=== PATIENT | male | born 1935 | race Caucasian/White ===

== ENCOUNTER 2020-11-29 14:03 | Emergency (ER) | payer MEDICARE, SELFPAY ==
[2020-11-29 14:05] VITALS: BP 142/101; PULSE 89; PULSE 95; RESP 24; TEMP 36.9; O2SAT 95; BMI 26.5
--- NOTE | 2020-11-29 14:43 | XR_ITS ---
PROCEDURE INFORMATION: Exam: XR Chest Exam date and time: 11/29/2020 2:43 PM Age: 85 years old Clinical indication: Chest pain; Patient HX: Pain when coughing; Additional info: Cough TECHNIQUE: Imaging protocol: XR of the chest. Views: 2 views. COMPARISON: No relevant prior studies available. FINDINGS: Lungs: The lungs are hyperinflated, consistent with underlying small airways disease. Granulomatous density noted within the left lung apex. Atelectatic and/or early infiltrative changes noted within the left lung base. Pleural spaces: Unremarkable. No pleural effusion. No pneumothorax. Heart/Mediastinum: Unremarkable. No cardiomegaly. Bones/joints: The thoracic spine demonstrates mild degenerative changes at multiple levels. IMPRESSION: 1. The lungs are hyperinflated, consistent with underlying small airways disease. 2. Atelectatic and/or early infiltrative changes noted within the left lung base.
--- NOTE | 2020-11-29 14:56 | HMH.EDUTC ---
[facility] [place] Disposition Clinical Impression: Infiltrate of left lung present on chest x-ray Disposition: Home, Self-Care Condition on Discharge: Good Instructions: Aspiration Pneumonia, DI for Pneumonia -- Adult, Amoxicillin and Clavulanic Acid Additional Instructions: ? Start antibiotic today. Be sure to complete entire prescription even if feeling better ? Monitor temp. Tylenol every 4 hours as needed and / or ibuprofen every 6 hours as needed ( As long as your primary care physician has told you that it ok to take both. For fever/aches/pains ER if no less than 101 despite Tylenol or Motrin ? Humidifier/vaporizer or hot steamy shower ? Mucinex during the day for your cough and cough suppressant only at night. Be sure to drink lots of water. Insurance may not cover a prescriptions for mucinex. Might be cheaper to get 400mg tablets and take 2 tablet in the morning, mid-day and evening with lots of water. Follow up IMMEDIATELY for new or worsening of symptoms OR no noticeable improvement over the next 48-72 hours. 911 immediately for any life threatening symptoms such as chest pain or difficulty breathing Prescriptions: Amoxicillin/Potassium Clav [Augmentin 875-125 Tablet] 1 tab PO Q12H 5 Days #10 tab Prescription Printed Referrals: Ankit Harding MD [Primary Care Provider] - As needed Time of Disposition: 15:33 Medical Decision Making - Billy Inquiry Pt receiving controlled substance: No Billy was queried for this patient: No Vital Signs: 11/29/20 14:05 11/29/20 15:44 Temperature 98.4 F 98.4 F Temperature Source Oral Pulse Rate 89 Pulse Rate [Right Brachial] 95 H Respiratory Rate 24 24 Blood Pressure 117/70 Blood Pressure [Right Arm] 142/101 H Blood Pressure Mean [Right Arm] 114 Blood Pressure Source [Right Arm] Automatic Cuff Blood Pressure Position [Right Arm] Sitting 02 Sat by Pulse Oximetry 95 Oxygen Delivery Method Room Air - Radiology Data #1 Image(s): Chest Image Reviewed: Yes I have reviewed radiologist's interpretation 1. The lungs are hyperinflated, consistent with underlying small airways disease. 2. Atelectatic and/or early infiltrative changes noted within the left lung base. Medical Decision Narrative: medication discussed with pharmacy [facility] [place] HPI - General Stated complaint: cough Time Seen by Provider: 11/29/20 14:56 Mode of Arrival: Ambulatory Source of Information: Patient Limitations: No Limitations Description of Symptoms (Recalled from Triage Doc. by RN): PATIENT STATES HE GOT STRANGLED ON TEA YESTERDAY AND SINCE THEN HAS HAD A COUGH SINCE THEN. STATES COUGH IS INTERMITTENLY PRODUCTIVE HEENT Symptoms (Recalled from RN notes): No Resp Symptoms (Recalled from RN notes): Yes Skin Symptoms (Recalled from RN notes): No MS Symptoms (Recalled from RN notes): No Functional Status (Recalled from RN notes): WNL - History of Present Illness Provider Complaint: Patient states that he was drinking tea yesterday when he got chocked as he took a drink of tea States that it was only a small amount State that ever since he has had a cough on and off and sometimes he is coughing up mucous. States that he was worried where he was coughing and felt a tickle in the back of his throat so he came in to get checked - Related Data Home Medications Medication Instructions Recorded Confirmed Quinapril HCl [Accupril] 20 mg PO DAILY 11/29/20 11/29/20 Tamsulosin HCl [Flomax 0.4mg 0.4 mg PO HS 11/29/20 11/29/20 capsule] Verapamil HCl [Verapamil ER] 120 mg PO DAILY 11/29/20 11/29/20 Previous Rx's Medication Instructions Recorded Amoxicillin/Potassium Clav 1 tab PO Q12H 5 Days #10 tab 11/29/20 [Augmentin 875-125 Tablet] Allergies Allergy/AdvReac Type Severity Reaction Status Date / Time No Known Allergies Allergy Verified 11/29/20 14:57 - Worker's Comp Is this a Worker's Comp case?: No [facility] History - Hepatitis A Screen Drug use history?: No Hi
[2020-11-29 15:44] VITALS: BP 117/70; PULSE 89; RESP 24; TEMP 36.9; O2SAT 95
== END 2020-11-29 15:47 | disposition home or self-care (01) ==
PROVIDERS: Emergency Provider Nurse Practitioner; PCP Family Medicine
DX: R91.8 Other nonspecific abnormal finding of lung field (principal); I10 Essential (primary) hypertension; Z79.899 Other long term (current) drug therapy
CPT/HCPCS: G0463; 71046; 99202

== ENCOUNTER → 2022-03-05 15:31 | Outpatient (CLI) | payer MEDICARE, SELFPAY ==
[2022-03-07 08:11] LABS: PSA, Free 2.87 ng/mL; Prostate Specific Ag 6.9 ng/mL (0.0-4.0)
== END ==
PROVIDERS: Visit Provider Urology
DX: R97.20 Elevated prostate specific antigen [PSA] (principal)
CPT/HCPCS: 36415; 84153; 84154

== ENCOUNTER → 2022-03-05 15:35 | Outpatient (CLI) | payer MEDICARE, SELFPAY | PROVIDERS: PCP Urology; Visit Provider Family Medicine | DX: R97.20 Elevated prostate specific antigen [PSA] (principal) ==

== ENCOUNTER → 2022-04-09 09:19 | Outpatient (CLI) | payer MEDICARE, SELFPAY | PROVIDERS: PCP Family Medicine; Visit Provider Urology | DX: N40.1 Benign prostatic hyperplasia with lower urinary tract symptoms (principal); Z01.812 Encounter for preprocedural laboratory examination; Z20.822 Contact with and (suspected) exposure to COVID-19 | CPT/HCPCS: C9803; U0003; U0005 ==

== ENCOUNTER 2022-04-12 10:11 | Day surgery (SDC) | payer MEDICARE, SELFPAY ==
[2022-04-12 10:39] VITALS: BP 150/71; PULSE 61; RESP 18; TEMP 36.8; O2SAT 99; BMI 28.0
[2022-04-12 11:39] VITALS: BP 156/81; PULSE 64; RESP 17; TEMP 36.1; O2SAT 99
[2022-04-12 11:46] VITALS: BP 156/81; PULSE 64; RESP 17; TEMP 36.1; O2SAT 99
--- NOTE | 2022-04-12 11:54 | EXP.OP.NOTE ---
Date of procedure: 04/12/22 Pre-op Diagnosis:: Lower urinary tract symptoms with incomplete bladder emptying and incontinence. Post-op Diagnosis:: BPH with obstruction Procedure performed:: Cystoscopy Surgeon:: Terry Dixon MD Anesthesia: local Estimated blood loss (mL): 0 Clinical Note:: Patient is an 86-year-old white male with urinary symptoms of urgency, frequency and urge incontinence. Postvoid residual was 315 cc. He presents for cystoscopic evaluation. Operative findings:: Patient with severe trabeculation of the bladder and trilobar hyperplasia. Operative note:: Patient taken to the cystoscopy suite after informed consent was obtained. He was prepped draped in the standard surgical fashion in the supine position. 2% lidocaine was placed into the urethra and clamped. After 5 minutes the flexible cystoscope was introduced into the urethral meatus. Passed into the bladder without difficulty and the bladder was examined in a systematic fashion. There was severe trabeculation of the bladder. No diverticula or bladder stones were noted. The ureteral orifices were well away from the bladder neck. There is clear efflux of urine from the ureteral orifices. The scope was retroflexed showing a median lobe that was moderate in size. Scope then pulled back to the prostatic urethra and there was trilobar hyperplasia present. Urethral length was 2-1/2 cm. There is no evidence of urethral strictures. Scope removed the patient tolerated the procedure well. We discussed the findings today and due to the median lobe he is not a good UroLift candidate and TURP was discussed to help him empty his bladder out and improve his lower urinary tract symptoms. He states he will discuss it with his primary care physician and his . He will let me know how he wishes to proceed. Condition: stable Disposition: same day Specimens:: None Complications:: None
== END 2022-04-12 11:46 | disposition home or self-care (01) ==
PROVIDERS: PCP Family Medicine; Visit Provider Urology
DX: N40.1 Benign prostatic hyperplasia with lower urinary tract symptoms (principal); R33.9 Retention of urine, unspecified; R32 Unspecified urinary incontinence; N32.89 Other specified disorders of bladder
CPT/HCPCS: 52000

== ENCOUNTER 2022-07-13 11:11 | Emergency (ER) | payer MEDICARE, SELFPAY ==
[2022-07-13] VITALS (9 sets, daily range): BP systolic 114–148; BP diastolic 61–83; PULSE 64–79; RESP 18–20; TEMP 37.1; O2SAT 94–98; BMI 25.8
--- NOTE | 2022-07-13 11:45 | CT_ITS ---
FINAL REPORT TECHNIQUE: Postcontrast axial images through the abdomen and pelvis were performed. This study was performed with techniques to keep radiation doses as low as reasonably achievable, (ALARA). Individualized dose reduction techniques using automated exposure control or adjustment of mA and/or kV according to the patient's size were employed. CLINICAL HISTORY: LBP, abdo tenderness, diarrhea, trouble urinating FINDINGS: Abdomen: There is atelectasis in the lung bases. There are 2 presumed cysts in the right liver dome measuring up to 2.1 cm. There is mild nonspecific gallbladder wall thickening. The spleen is borderline enlarged at 13.4 cm. The adrenals are normal. The pancreas is unremarkable. The kidneys enhance appropriately. The aorta is normal in caliber. There is moderate vascular calcification. No free fluid or adenopathy is identified. There are multiple nonspecific fluid-filled bowel loops. No findings for mechanical bowel obstruction are identified. Pelvis: The appendix is normal. There is diverticulosis of the sigmoid colon. There is urinary bladder wall thickening with multiple small bladder diverticula. There are questionable postoperative changes in the central prostate. There is a small left inguinal hernia containing fat. There is a 25 mm focus of soft tissue in the upper right inguinal canal of uncertain etiology. IMPRESSION: Nonspecific fluid-filled bowel loops. Diverticulosis without diverticulitis. 25 mm focus of soft tissue in the upper right inguinal canal of uncertain etiology. Bladder wall thickening with multiple small bladder diverticula. Reviewed, Interpreted and Dictated by Terrence Roe III, MD Transcribed by Willie Adame Authenticated and [facility]
--- NOTE | 2022-07-13 11:45 | XR_ITS ---
FINAL REPORT CLINICAL HISTORY: weakness COMPARISON: November 2020 FINDINGS: SINGLE VIEW CHEST The heart size is enlarged. The mediastinum is within normal limits. There is mild bibasilar atelectasis. There is no evidence of pneumothorax. The bony thorax is intact. IMPRESSION: Mild bibasilar atelectasis. Reviewed, Interpreted and Dictated by Terrence Roe III, MD Transcribed by Willie Adame Authenticated and [facility] [place] [place]
--- NOTE | 2022-07-13 11:49 | HMH.EDGENADL ---
Discharge Plan Disposition Patient Disposition: Home, Self-Care Condition: Good Chief Complaint: Weakness Prescriptions Prescriptions: No Action simvastatin 10 mg tablet 10 mg PO DAILY tamsulosin 0.4 MG capsule 0.4 mg PO HS quinapril 20 MG tablet 20 mg PO DAILY verapamil 120 MG capsule,ext rel. pellets 24 hr 120 mg PO DAILY Referrals Follow up/Referrals: Cailin Rooney MD [Primary Care Provider] - See instructions Activity Restrictions/Add. Instructions Additional Instructions/Restrictions: Rest and drink plenty of fluids. Call Dr. Rooney for follow-up appointment. Follow-up with your urologist for soft tissue mass in your right inguinal canal seen on CT scan. Take disc of your CT scan with you to appointment. Clinical Impressions Clinical Impression: Generalized weakness Instructions Patient Instructions: DI for Muscle Weakness Discharge ED Provider: Tommy Díaz General Adult HPI General Chief complaint: Weakness Stated complaint: Weakness Time Seen by Provider: 07/13/22 11:37 History of Present Illness HPI narrative: History obtained from patient and son. Son states that the patient had a TURP done [address] Martel at [facility] in [place]. Since then he has had continual decline. He is profoundly generally weak. Fell yesterday and could not get up by himself. He complains of low back pain. He has had diarrhea with fecal incontinence a couple of times and difficulty urinating since yesterday. Denies fever. Denies abdominal pain. Denies chest pain or shortness of breath or cough. States he has been eating and drinking normally and urinating a normal amount. Son states patient has not slept for the past 5 days until last night, patient says he slept well last night after taking melatonin. He had some hematuria after his TURP, but it resolved. No dysuria. Related Data Home Medications Medication Instructions Recorded Confirmed quinapril 20 mg tablet 20 mg PO DAILY Hypertension 11/29/20 04/12/22 tamsulosin 0.4 mg capsule 0.4 mg PO HS PROSTATE 11/29/20 04/12/22 verapamil 120 mg 24 hr 120 mg PO DAILY Hypertension 11/29/20 04/12/22 capsule,extended release simvastatin 10 mg tablet 10 mg PO DAILY Cholesterol 03/05/22 04/12/22 Allergies Allergy/AdvReac Type Severity Reaction Status Date / Time No Known Allergies Allergy Verified 04/12/22 10:34 PFSH PFS Disclaimer: The information contained in this section may have been updated after the patient was seen, as this information can be updated by other users. Medical History (Updated 07/13/22 @ 14:57 by Tommy Díaz MD) High blood cholesterol High blood pressure Surgical History (Updated 04/12/22 @ 10:37 by Paula Jose RN) H/O hernia repair Family History (Updated 04/12/22 @ 10:38 by Paula Jose RN) Other Stroke Social History (Updated 04/12/22 @ 10:38 by Paula Jose RN) Smoking Status: Never smoker alcohol intake: never substance use type: denies use current occupational status: retired and other Travel in the last 8 weeks: None household members: spouse and family housing: house ROS Obtained: Yes Systems reviewed as appropriate & no additional complaints except as documented Constitutional Constitutional: Reports fatigue, Denies fever(s), Denies headache(s) and Reports weakness ENT Ears, Nose, Mouth, and Throat: Denies headache(s), Denies nasal discharge and Denies sore throat Cardiovascular Cardiovascular: Denies chest pain Respiratory Respiratory: Denies shortness of breath and Denies cough Gastrointestinal Gastrointestingal: Reports diarrhea and fecal incontinence; Denies abdominal pain, constipation or vomiting Genitourinary Male Genitourinary: Reports difficulty urinating and Denies flank pain Musculoskeletal Musculoskeletal: Reports back pain and Denies numbness Neurologic Neurologic: Denies headache(s), Denies numbness and Reports wea
--- NOTE | 2022-07-13 11:58 | PC.NURSE ---
DIMAS WASSERMAN at for patient eval
[2022-07-13 11:59] LABS: Chloride 98 mmol/L (98-107); Sodium 130 mmol/L (136-145)
[2022-07-13 12:00] LABS: Basophils # 0.1 K/mm3 (0-0.2); Basophils % 0.6 % (0.1-2.0); Eosinophils # 0.1 K/mm3 (0.0-0.4); Eosinophils % 0.6 % (0.1-12.0); Hematocrit 46.7 % (42.0-52.0); Hemoglobin 15.2 g/dL (14.1-18.0); Lymphocytes # 0.7 K/mm3 (0.7-4.5); Lymphocytes % 8.4 % (10-50); Mean Corpuscular HGB Conc 32.5 g/dL (31.8-35.4); Mean Corpuscular Hemoglobin 30.4 pg (27.0-31.2); Mean Corpuscular Volume 93.5 fl (80-94); Monocytes # 0.2 K/mm3 (0.1-1.0); Monocytes % 2.9 % (1.7-9.3); Neutrophils # 6.8 K/mm3 (1.8-7.8); Neutrophils % 87.4 % (37.0-80.0); Platelet Count 230 K/mm3 (142-424); Potassium 4.4 mmoL/L (3.5-5.1); Red Blood Count 4.99 M/mm3 (4.60-6.20); Red Cell Distribution Width 12.8 % (11.5-17.5); White Blood Count 7.8 K/mm3 (4.8-10.8)
[2022-07-13 12:01] LABS: MANUAL DIFFERENTIAL MANUAL DIFFERENTIAL (MANUAL DIFF)
--- NOTE | 2022-07-13 12:01 | ECG_ITS ---
APPROVED REPORT Exam: Resting ECG HR:77 bpm ECG Measurements Heart Rate 77 AXES OR 171 P 53 QRSd 138 QRS 40 QT 408 T 46 QTc 439 Conclusion SINUS RHYTHM LEFT BUNDLE BRANCH BLOCK [120+ ms QRS DURATION, 80+ ms Q/S IN V1/V2, 85+ ms R IN I/aVL/V5/V6] ABNORMAL ECG UNCONFIRMED REPORT Electronically signed by : Ankit Loera MD 07/13/2022 19:53:08
[2022-07-13 12:02] LABS: Alanine Aminotransferase 32 U/L (12-78); Albumin Level 4.2 g/dl (3.5-5.0); Albumin/Globulin Ratio 1.4 (1.1-1.8); Alkaline Phosphatase 115 U/L (38-126); Anion Gap 14.4 mEq/L (5-15); Aspartate Amino Transferase 45 U/L (17-59); Bilirubin,Total 0.6 mg/dl (0.2-1.3); Blood Urea Nitrogen 15 mg/dl (9-20); Calcium 9.8 mg/dl (8.4-10.2); Carbon Dioxide 22 mmol/L (22.0-30.0); Creatine Kinase 218 U/L (55-170); Creatinine Clearance Estimated 42 mL/min (50-200); Estimated Glomerular Filt Rate 48 ml/min (>60); GFR (African American) 58 ML/MIN (>60); Globulin 3.1 g/dL (1.3-3.2); Glucose 118 mg/dl (74-100); Total Protein,Serum 7.3 g/dl (6.3-8.2)
[2022-07-13 12:04] LABS: Lactic Acid 1.3 mmol/L (0.7-2.1)
[2022-07-13 12:05] LABS: Coronavirus 19, PCR Not Detected (NotDetected); Influenza A, PCR Not Detected (NotDetected); Influenza B, PCR Not Detected (NotDetected)
[2022-07-13 12:11] LABS: CKMB Relative Index 0.7 U/L (0-4.0); Creatine Kinase MB 1.5 ng/ml (0.0-2.03)
[2022-07-13 12:16] LABS: Troponin I < 0.01 ng/ml (0.00-0.034)
--- NOTE | 2022-07-13 12:19 | PC.NURSE ---
pt given urinal to attempt to provide urine specimen
--- NOTE | 2022-07-13 12:20 | PC.NURSE ---
pt to CT via stretcher with cardiac cath lab radiology technologist
[2022-07-13 12:22] LABS: Lymphocytes % 4 % (10-50); Monocytes % 4 % (2-9); Neutrophils % 92 % (42-76); Platelet Estimate Normal; RBC Morphology Normal; Total Cells Counted 100
--- NOTE | 2022-07-13 12:39 | PC.NURSE ---
pt returned from CT via stretcher with player piano technician
--- NOTE | 2022-07-13 13:08 | PC.NURSE ---
pt unable urinate so far, urinal at BS for put use.
--- NOTE | 2022-07-13 13:55 | PC.NURSE ---
contacted radiology to check on status of CT results, staff states they are the next in line to be read.
[2022-07-13 14:23] LABS: Microscopic, Urine URINE MICROSCOPIC (MICROSCOPIC)
[2022-07-13 14:25] LABS: Appearance,Urine CLEAR (Clear); Bilirubin,Urine Negative (Negative); Blood, Urine 2+ (Negative); Color,Urine YELLOW (Yellow); Glucose,Urine (UA) Negative (Negative); Ketones,Urine Negative (Negative); Leukocyte Esterase,Urine Negative (Negative); Nitrate,Urine Negative (Negative); PH,Urine 5.5 (5.0-8.5); Protein,Urine Negative (Negative); Urobilinogen,Urine 0.2 EU/dl (0.2)
[2022-07-13 14:44] LABS: WBC,Urine Occasional #/hpf (0-3)
--- NOTE | 2022-07-13 14:44 | PC.NURSE ---
Pt resting on ED stretcher, son at . Both aware that we are still waiting on results. Gave pt another warm blanket. No other needs from pt or son at this time
[2022-07-13 14:45] LABS: Squamous Epithelial Cell,Urine Occasional #/hpf (0-5)
--- NOTE | 2022-07-13 14:52 | PC.NURSE ---
ER at to update pt and family of POC
== END 2022-07-13 15:22 | disposition home or self-care (01) ==
PROVIDERS: Emergency Provider Emergency Medicine; PCP Family Medicine
DX: R53.1 Weakness (principal); Z48.816 Encounter for surgical aftercare following surgery on the genitourinary system; Z90.79 Acquired absence of other genital organ(s); Z79.899 Other long term (current) drug therapy
CPT/HCPCS: 71045; 74177; 80053; 81001; 82550; 82553; 83605; 84484; 85007; 85025; 87040; 93005; 96365; 99284; 99285; C9803; Q9967; U0003; U0005

== ENCOUNTER 2023-06-10 14:43 | Emergency (ER) | payer MEDICARE, SELFPAY ==
[2023-06-10] VITALS (8 sets, daily range): BP systolic 125–157; BP diastolic 65–77; PULSE 56–81; RESP 16–18; TEMP 36.8–37.1; O2SAT 96–99; BMI 26.5
[2023-06-10 15:13] LABS: Basophils # 0.1 K/mm3 (0-0.2); Eosinophils # 0.1 K/mm3 (0.0-0.4); Eosinophils % 1.3 % (0.1-12.0); Hematocrit 41.9 % (42.0-52.0); Hemoglobin 14.7 g/dL (14.1-18.0); Lymphocytes # 1.4 K/mm3 (0.7-4.5); Lymphocytes % 25.9 % (10-50); Mean Corpuscular HGB Conc 35.1 g/dL (31.8-35.4); Mean Corpuscular Hemoglobin 31.8 pg (27.0-31.2); Mean Corpuscular Volume 90.6 fl (80-94); Monocytes # 0.5 K/mm3 (0.1-1.0); Monocytes % 8.9 % (1.7-9.3); Neutrophils # 3.4 K/mm3 (1.8-7.8); Neutrophils % 62.8 % (37.0-80.0); Platelet Count 167 K/mm3 (142-424); Red Blood Count 4.63 M/mm3 (4.60-6.20); Red Cell Distribution Width 13.2 % (11.5-17.5); White Blood Count 5.5 K/mm3 (4.8-10.8)
--- NOTE | 2023-06-10 15:18 | XR_ITS ---
PROCEDURE INFORMATION: Exam: XR Chest Exam date and time: 06/10/2023 4:32 PM Age: 87 years old Clinical indication: Cough; Additional info: Cough, weakness TECHNIQUE: Imaging protocol: Radiologic exam of the chest. Views: 1 view. COMPARISON: CR XR CHEST PORTABLE 07/13/2022 12:48 PM FINDINGS: Lungs: Hypoaeration of the lungs which are clear for the degree of inspiration. No pulmonary edema or consolidation. Pleural spaces: No pleural effusion. No pneumothorax. Heart/Mediastinum: Cardiomediastinal silhouette is normal. Bones/joints: No acute abnormality. IMPRESSION: No acute abnormality.
--- NOTE | 2023-06-10 15:18 | CT_ITS ---
PROCEDURE INFORMATION: Exam: CT Cervical Spine Without Contrast Exam date and time: 06/10/2023 5:14 PM Age: 87 years old Clinical indication: Injury or trauma; Fall; Blunt trauma; Injury date: 06/09/23 TECHNIQUE: Imaging protocol: Computed tomography of the cervical spine without contrast. Radiation optimization: All CT scans at this facility use at least one of these dose optimization techniques: automated exposure control; mA and/or kV adjustment per patient size (includes targeted exams where dose is matched to clinical indication); or iterative reconstruction. REPORTING DATA: Count of CT and Cardiac NM exams in prior 12 months: This patient has received [address] and 0 known cardiac nuclear medicine studies in the 12 months prior to the current study. COMPARISON: CT HEAD/BRAIN WO CON 06/10/2023 5:12 PM FINDINGS: Bones/joints: Vertebral alignment is maintained. There is preservation of vertebral body heights. Facet joints are aligned. Odontoid process is intact. Atlantoaxial interval maintained. No acute fracture. Uncovertebral and facet arthropathy result in varying degrees of neural foraminal narrowing at multiple levels. Paranasal sinuses: Scattered mucosal thickening throughout the paranasal sinuses. Lungs: Lung apices are normal. Soft tissues: Prevertebral and paravertebral soft tissues are maintained IMPRESSION: No acute fracture. No traumatic subluxation.
--- NOTE | 2023-06-10 15:18 | CT_ITS ---
PROCEDURE INFORMATION: Exam: CT Head Without Contrast Exam date and time: 06/10/2023 5:12 PM Age: 87 years old Clinical indication: Injury or trauma; Fall; Blunt trauma (contusions or hematomas); Injury date: 06/09/23 TECHNIQUE: Imaging protocol: Computed tomography of the head without contrast. Radiation optimization: All CT scans at this facility use at least one of these dose optimization techniques: automated exposure control; mA and/or kV adjustment per patient size (includes targeted exams where dose is matched to clinical indication); or iterative reconstruction. REPORTING DATA: Count of CT and Cardiac NM exams in prior 12 months: This patient has received [address] and 0 known cardiac nuclear medicine studies in the 12 months prior to the current study. COMPARISON: No relevant prior studies available. FINDINGS: Brain: There is no evidence of acute intracranial hemorrhage, extra-axial collection or locoregional mass effect. There are scattered hypodensities in the periventricular and subcortical white matter. The appearance is nonspecific, but most likely represents chronic small vessel disease in a person of this age Cerebral ventricles: The ventricles, sulci and cisterns are normal in size and configuration for patient's age. No hydrocephalus or midline structure shift Pituitary gland and sella: Sellar/parasellar structures, craniocervical junction and orbits are unremarkable Paranasal sinuses: Scattered mucosal thickening throughout the paranasal sinuses. Mastoid air cells: Visualized mastoid air cells are well aerated. Bones/joints: No calvarial fracture Soft tissues: Unremarkable. IMPRESSION: No acute intracranial abnormality. No calvarial fracture.
[2023-06-10 15:31] LABS: VBG Base Excess -6.7 mmol/L (-2.4-2.3); VBG HCO3 18.3 mmol/L (23-30); VBG PH 7.39 mmol/L (7.31-7.41); VBG PO2 37.3 mmol/L (28-40); VBG Total CO2 19.3 mmol/L (23-27)
--- NOTE | 2023-06-10 15:31 | ECG_ITS ---
APPROVED REPORT Exam: Resting ECG HR:62 bpm ECG Measurements Heart Rate 62 AXES MI 177 P 58 QRSd 134 QRS 8 QT 430 T 98 QTc 436 Conclusion SINUS RHYTHM LEFT BUNDLE BRANCH BLOCK Bi-atrial abnormality ABNORMAL ECG UNCONFIRMED REPORT Electronically signed by : Ankit Loera MD 06/12/2023 08:41:21
[2023-06-10 15:32] LABS: Chloride 103 mmol/L (98-107); Potassium 4.6 mmoL/L (3.5-5.1); Sodium 132 mmol/L (136-145)
[2023-06-10 15:34] LABS: Alanine Aminotransferase 22 U/L (12-78); Aspartate Amino Transferase 38 U/L (17-59); Blood Urea Nitrogen 12 mg/dl (9-20); Creatine Kinase 100 U/L (55-170); Creatinine Clearance Estimated 63 mL/min (50-200); Estimated Glomerular Filt Rate 80 ml/min (>60); GFR (African American) 97 ML/MIN (>60)
[2023-06-10 15:35] LABS: Albumin Level 4.1 g/dl (3.5-5.0); Albumin/Globulin Ratio 1.5 (1.1-1.8); Alkaline Phosphatase 79 U/L (38-126); Anion Gap 11.6 mEq/L (5-15); Bilirubin,Total 0.8 mg/dl (0.2-1.3); Carbon Dioxide 22 mmol/L (22.0-30.0); Globulin 2.8 g/dL (1.3-3.2); Glucose 99 mg/dl (74-100); Total Protein,Serum 6.9 g/dl (6.3-8.2)
--- NOTE | 2023-06-10 15:36 | HMH.EDGENADL ---
Discharge Plan Disposition Patient Disposition: Home, Self-Care Condition: Good Prescriptions Prescriptions: No Action simvastatin 10 mg tablet 10 mg PO DAILY tamsulosin 0.4 MG capsule 0.4 mg PO HS quinapril 20 MG tablet 20 mg PO DAILY verapamil 120 MG capsule,ext rel. pellets 24 hr 120 mg PO DAILY Referrals Follow up/Referrals: Cailin Rooney MD [Primary Care Provider] - See instructions Activity Restrictions/Add. Instructions Additional Instructions/Restrictions: You were evaluated in the emergency department today. You tested positive for COVID. Make sure that you are staying hydrated. Take Tylenol and ibuprofen at home as needed for pain and fever. Return to the emergency department for new or worsening symptoms. Clinical Impressions Clinical Impression: COVID-19, General weakness Instructions Patient Instructions: DI for Muscle Weakness, DI for COVID-19 (Suspected or Confirmed ) Discharge ED Provider: Milagro Yoo General Adult HPI General Chief complaint: Weakness Stated complaint: weakness, cough Time Seen by Provider: 06/10/23 14:48 Mode of Arrival: Ambulatory Source of Information: Patient Limitations: No Limitations Description of Symptoms (Recalled from ER Triage Doc. by RN): Pt reports no energy or strength x2 days. Pt reports fall lastnight r/t weakness, needed assistance getting back up. Pt denies injuries from fall, denies LOC. Pt also reports productive cough x2-3 days, no known fever. Pt denies SOA. History of Present Illness HPI narrative: This patient is a 87-year-old male with a history of hypertension and hyperlipidemia presenting to the emergency department for evaluation with concern for generalized weakness and fatigue. He reports that 3 days ago, he was outside lifting up a lot of heavy wood. Yesterday, he woke up and was not able to get up and do very much at all. He states that his entire body hurts and feels achy. He also had a ground-level fall last night as a result of the weakness, but he denies hitting his head, losing consciousness, or any injuries associated with this. He denies any fevers, chills, shortness of breath, chest pain, abdominal pain, nausea, vomiting, changes bowel movements, rashes, swelling, or other concerns. He does note that he has had a productive cough for the last 2 to 3 days. He denies any changes in appetite or oral intake. He notes he had an episode similar to this a while ago, but then it was attributed to a recent prostate surgery that he had had. He denies any recent surgeries or other concerns. Related Data Home Medications Medication Instructions Recorded Confirmed quinapril 20 mg tablet 20 mg PO DAILY Hypertension 11/29/20 04/12/22 tamsulosin 0.4 mg capsule 0.4 mg PO HS PROSTATE 11/29/20 04/12/22 verapamil 120 mg 24 hr 120 mg PO DAILY Hypertension 11/29/20 04/12/22 capsule,extended release simvastatin 10 mg tablet 10 mg PO DAILY Cholesterol 03/05/22 04/12/22 Allergies Allergy/AdvReac Type Severity Reaction Status Date / Time No Known Allergies Allergy Verified 04/12/22 10:34 [facility] Disclaimer: The information contained in this section may have been updated after the patient was seen, as this information can be updated by other users. Medical History High blood cholesterol High blood pressure Surgical History H/O hernia repair Family History Other Stroke Social History Smoking Status: Never smoker alcohol intake: never substance use type: denies use current occupational status: retired and other Travel in the last 8 weeks: None household members: spouse and family housing: house ROS Obtained: Yes All systems reviewed & no additional complaints except
--- NOTE | 2023-06-10 15:37 | PC.NURSE ---
covid swab sent to lab [facility] on ice sent to lab urinal at -pt reports unable to urinate at this time .
[2023-06-10 15:44] LABS: Influenza A, PCR Not Detected (NotDetected); Influenza B, PCR Not Detected (NotDetected)
--- NOTE | 2023-06-10 15:51 | PC.NURSE ---
pt to ct scan
[2023-06-10 15:52] LABS: T4 (Thyroxine) 6.3 ug/dl (5.53-11.0)
[2023-06-10 15:53] LABS: Magnesium 1.8 mg/dl (1.6-2.3)
[2023-06-10 16:02] LABS: Lactic Acid 1.1 mmol/L (0.7-2.1)
[2023-06-10 16:06] LABS: Thyroid Stimulating Hormone 1.11 uIU/mL (0.465-4.68)
--- NOTE | 2023-06-10 16:07 | PC.NURSE ---
PT GOING FOR CT
[2023-06-10 16:11] LABS: Coronavirus 19, PCR Detected (NotDetected)
== END 2023-06-10 17:47 | disposition home or self-care (01) ==
PROVIDERS: Emergency Medicine; Emergency Provider Emergency Medicine; PCP Family Medicine
DX: U07.1 COVID-19 (principal); R05.9 Cough, unspecified; R53.1 Weakness; I44.7 Left bundle-branch block, unspecified; I10 Essential (primary) hypertension; E78.5 Hyperlipidemia, unspecified; R53.83 Other fatigue; W19.XXXA Unspecified fall, initial encounter
CPT/HCPCS: 70450; 71045; 72125; 80053; 82550; 82803; 83605; 83735; 84436; 84443; 85025; 87636; 93005; 96374; 99285; J0131

== ENCOUNTER 2024-06-26 11:22 | Emergency (ER) | payer MEDICARE, SELFPAY ==
--- NOTE | 2024-06-26 12:00 | PC.NURSE ---
bladder scan revealed only 60 ml, ER provider notified
[2024-06-26 12:04] VITALS: BP 103/93; PULSE 68; RESP 18; TEMP 36.4; O2SAT 97; BMI 26.6
[2024-06-26] MEDS: TAMSULOSIN 0.4MG CAPSULE 0.4 MG PO (12:22)
[2024-06-26 12:34] LABS: Microscopic, Urine URINE MICROSCOPIC (MICROSCOPIC)
[2024-06-26 12:41] LABS: Appearance,Urine CLOUDY (Clear); Bilirubin,Urine Negative (Negative); Blood, Urine 2+ (Negative); Color,Urine YELLOW (Yellow); Glucose,Urine (UA) Negative (Negative); Ketones,Urine Negative (Negative); Leukocyte Esterase,Urine 2+ (Negative); Nitrate,Urine POSITIVE (Negative); Protein,Urine 2+ (Negative); Specific Gravity, Urine >= 1.030 (1.005-1.030)
--- NOTE | 2024-06-26 13:00 | HMH.EDGENADL ---
Discharge Plan Prescriptions Prescriptions: New cefdinir 300 mg capsule 300 mg PO BID 7 Days Qty: 14 0RF tamsulosin 0.4 mg capsule 0.4 mg PO DAILY Qty: 30 0RF No Action simvastatin 10 mg tablet 10 mg PO DAILY tamsulosin 0.4 MG capsule 0.4 mg PO HS quinapril 20 MG tablet 20 mg PO DAILY verapamil 120 MG capsule,ext rel. pellets 24 hr 120 mg PO DAILY Referrals Follow up/Referrals: Cailin Rooney MD [Primary Care Provider] - See instructions Activity Restrictions/Add. Instructions Additional Instructions/Restrictions: Take tamsulosin daily until following up with urology and family doctor. Cefdinir twice daily for 7 days. Call your family doctor to establish care for this visit to the emergency department and schedule follow-up within 48 hours to ensure improvement. If you have any worsening of your condition or any other concerning signs or symptoms, return to the emergency department or your primary care doctor for further evaluation. Clinical Impressions Clinical Impression: Urinary tract infection Instructions Patient Instructions: DI for Urinary Tract Infection (UTI), DI for Urinary Tract Infection in Children Print Language Print Language: Slovak Discharge ED Provider: Julian King General Adult HPI General Chief complaint: Urogenital-Male Stated complaint: can not urinate/pyh ref for catheter Time Seen by Provider: 06/26/24 11:35 Mode of Arrival: Ambulatory Source of Information: Patient Limitations: No Limitations Description of Symptoms (Recalled from ER Triage Doc. by RN): pt states he has had trouble urinating and had issues with retention. pt has a hx of prostate problems and has been trying to get a f/u with Dr. Borja but was unable to reach him. Pts prostate is enlarged, when biopsied a few years ago the tissue came back benign. Pt went and saw Dr. Rooney his PCP today. In the office the pt states there was no infection in his urine. pt reports he had L flank pain last night that has since resolved. On arrival pt was bladder scanned and had 60ml. History of Present Illness HPI narrative: Please note that above description of symptoms, in this electronic medical record under categorization of recalled from ER triage doctor by RN are reflective of an initial nursing assessment, however, is not reflective of my full history and physical exam that was personally taken and clarified. Consequentially, this preceding description of symptoms, which may include the patient's categorized chief complaint in the EMR, do not reflect my personal clinical impression, and the ultimate description of history of present illness and patient stated complaints should be deferred to this section of the note. Unless stated otherwise or congruent with this section of the note, additional signs, symptoms, or incongruence should be interpreted as inaccurate with my clinical impression. Related Data Home Medications ?Medication ?Instructions ?Recorded ?Confirmed quinapril 20 mg tablet 20 mg PO DAILY Hypertension 11/29/20 04/12/22 tamsulosin 0.4 mg capsule 0.4 mg PO HS PROSTATE 11/29/20 04/12/22 verapamil 120 mg 24 hr 120 mg PO DAILY Hypertension 11/29/20 04/12/22 capsule,extended release simvastatin 10 mg tablet 10 mg PO DAILY Cholesterol 03/05/22 04/12/22 Previous Rx's ?Medication ?Instructions ?Recorded cefdinir 300 mg capsule 300 mg PO BID 7 days #14 caps 06/26/24 tamsulosin 0.4 mg capsule 0.4 mg PO DAILY #30 caps 06/26/24 Allergies Allergy/AdvReac Type Severity Reaction Status Date / Time No Known Allergies Allergy Verified 06/26/24 12:16 [facility] Disclaimer: The information contained in this section may have been updated after the patient was seen, as this information can be updated by other users. Medical History High blood cholesterol High blood pressure Surgical History H/O hernia repair Family History Other Stroke Social History Smoking Status: Former smoker alcohol intake: never substance use type: denies use current occupational status: retired and other household members: spouse and family housing: house Other Medical History Have you received the Pneumonia Vaccine: Yes ROS Obtained: Yes All systems reviewed & no additional complaints except as documented Physical Exam General General appearance: alert Head Head exam: atraumatic and normocephalic Eye Eye exam: Present normal appearance, PERRL and EOMI Neck Neck exam: Present normal inspection, full ROM and trachea midline Respiratory Respiratory exam: Absent respiratory distress, wheezes, stridor, accessory muscle use or prolonged expiratory phase Cardiovascular Cardiovascular exam: Present other (Pulses equal symmetric in upper and lower extremities) Abdominal Exam Abdominal exam: Present soft; Absent distention, tenderness or pulsatile mass Extremities Exam Extremities exam: Absent edema Neurological Exam Neurological exam: Present alert, oriented X3 and CN II-XII intact; Absent motor sensory deficit Skin Skin exam: Present warm and dry; Absent diaphoresis or erythema Medical Decision Making Medical Records Medical records reviewed: Yes I reviewed the patient's medical records. Screening: Per USPSTF and CDC recommendations, given the prevalence of disease in our region, it is our hospital?s policy to screen for HIV and viral Hepatitis for all patients aged 18 and over and those with ongoing risk factors. Billy Inquiry Pt receiving controlled substance: No Billy was queried for this patient: No Vital Signs: 06/26/24 12:04 Temperature 97.6 F Temperature Source Oral Pulse Rate [Left] 68 Respiratory Rate 18 Blood Pressure [Right Arm] 103/93 L Blood Pressure Mean [Right Arm] 96 Blood Pressure Source [Right Arm] Automatic Cuff Blood Pressure Position [Right Arm] Sitting 02 Sat by Pulse Oximetry 97 Oxygen Delivery Method Room Air Lab Data Lab Results 06/26/24 12:30: Urine Color Yellow, Urine Appearance Cloudy, Urine pH 6.0, Ur Specific Sikes >= 1.030, Urine Protein 2+ A, Urine Glucose (UA) Negative, Urine Ketones Negative, Urine Blood 2+ A, Urine Nitrate Positive A, Urine Bilirubin Negative, Urine Urobilinogen 1.0, Ur Leukocyte Esterase 2+ A Orders (Tests/Meds): ED MEDICATIONS Generic Name Dose Route Start Last Admin Trade Name Freq PRN Reason Stop Dose Admin Cefdinir 300 mg 06/26/24 13:00 Cefdinir 300mg Capsule PO 06/26/24 13:01 ONCE ONE Discontinued Medications Generic Name Dose Route Start Last Admin Trade Name Freq PRN Reason Stop Dose Admin Tamsulosin HCl 0.4 mg 06/26/24 12:19 06/26/24 12:22 Tamsulosin 0.4mg Capsule PO 06/26/24 12:20 0.4 mg ONCE ONE Administration ORDERS Category Date Time Status HIV (1&2) Antibody Rapid Stat Lab 06/26/24 12:12 Ordered Hep C Ab with Reflex to RNA Stat Lab 06/26/24 12:12 Ordered UA [Urinalysis and Microscopic] Stat Lab 06/26/24 12:30 Results Urine Culture Stat Micro 06/26/24 12:30 Received Medical Decision Narrative: 88-year-old male history of prostatic metaplasia presenting with difficulty urinating. Patient states that he has had difficulty urinating for approximately 2 weeks. Called urologist, has not heard anything back. Went to his family doctor today, 06/26. States that he had urinalysis done and showed no evidence of infection. Patient states that at that appointment, was able to urinate, does not feel that he has been able to urinate since. States that he is intermittently having dribbling. No blood, burning, flank tenderness, abdominal tenderness, fevers, chills, vomiting, or any other concerns. History obtained with patient. On arrival, no abdominal tenderness, no acute distress. No flank tenderness. Differential includes urinary tract infection, BPH, bladder outlet obstruction, stone, among others. Patient given Flomax. Urinalysis was obtained to confirm. Sudarshan urinary tract infection with protein, blood, nitrates, leukocyte Estrace. First dose of cefdinir was given here. Given this, I feel this is likely residential sales representative of urinary tract infection in the setting of BPH. Tamsulosin and cefdinir sent to pharmacy, no further workup deemed necessary. Because patient at baseline without signs or symptoms of clinical decompensation, deemed appropriate for discharge. Results were relayed to patient who voiced understanding and were agreeable to outpatient management and follow up. I discussed my clinical impression with patient and answered all questions. At this time, the evidence for any other entities in the differential is insufficient to warrant any further testing or ED observation. This was explained as well. Advisory was given that persistent or worsening symptoms require further evaluation. I confirmed the understanding of this discussion. Community Development Coordinator disclaimer Much of this encounter note is an electronic electronic technician spoken language to printed text. Electronic electronic technician of the spoken language may permit errors. Although I have reviewed the note, some errors may still exist. Critical Care Critical Care Time Critical Care Time: No
[2024-06-26 13:07] VITALS: BP 110/90; PULSE 65; RESP 18; TEMP 36.4; O2SAT 98
[2024-06-26] MEDS: CEFDINIR 300MG CAPSULE 300 MG PO (13:12)
[2024-06-26 13:52] LABS: Bacteria,Urine 1+ /lpf; Squamous Epithelial Cell,Urine Occasional #/hpf (0-5)
--- NOTE | 2024-06-27 11:20 | PC.NURSE ---
urine culture discussed with , pt dc with cefdinir, ntd
--- NOTE | 2024-06-28 15:32 | PC.NURSE ---
urine final discussed with , no new orders
== END 2024-06-26 13:12 | disposition home or self-care (01) ==
PROVIDERS: Emergency Provider Emergency Medicine; PCP Family Medicine
DX: N39.0 Urinary tract infection, site not specified (principal); R33.8 Other retention of urine; R33.9 Retention of urine, unspecified
CPT/HCPCS: 81001; 87086; 87088; 87186; 99283

== ENCOUNTER 2025-02-22 17:49 | Emergency (ER) | payer MEDICARE, SELFPAY ==
[2025-02-22] VITALS (8 sets, daily range): BP systolic 111–165; BP diastolic 62–106; PULSE 64–108; RESP 20; TEMP 36.7–36.9; O2SAT 95–100; BMI 27.3
--- NOTE | 2025-02-22 18:19 | ED_ITS ---
Discharge Plan Disposition Patient Disposition: Home, Self-Care Condition: Good Prescriptions Prescriptions: New sulfamethoxazole-trimethoprim [Bactrim DS] 800-160 mg tablet 1 tab PO BID 5 Days Qty: 10 0RF No Action simvastatin 10 mg tablet 10 mg PO DAILY tamsulosin 0.4 MG capsule 0.4 mg PO HS quinapril 20 MG tablet 20 mg PO DAILY verapamil 120 MG capsule,ext rel. pellets 24 hr 120 mg PO DAILY cefdinir 300 mg capsule 300 mg PO BID 7 Days Qty: 14 0RF tamsulosin 0.4 mg capsule 0.4 mg PO DAILY Qty: 30 0RF Referrals Follow up/Referrals: Cailin Rooney MD [Primary Care Provider, Medical] - See instructions Activity Restrictions/Add. Instructions Additional Instructions/Restrictions: As we discussed please follow-up with your urologist as soon as possible. If you have any new or worsening signs or symptoms please return to the ER as needed. Clinical Impressions Clinical Impression: Bladder outlet obstruction, Constipation by outlet obstruction, Complicated urinary tract infection Print Language Print Language: [place] Discharge ED Provider: Hector Marquez General Adult HPI <ASHANTI Vickers - Last Filed: 02/22/25 21:09> General Chief complaint: PAIN Stated complaint: veronica constipated, having trouble sitting Time Seen by Provider: 02/22/25 18:19 Mode of Arrival: Ambulatory Source of Information: Patient and Relative Description of Symptoms (Recalled from ER Triage Doc. by RN): Patient presents to ED with constipation. Patient reports last BM 2-3 days ago and it was very small. Grand daughter reports an enema and suppository this morning with no relief. Patient is stating pain is mostly in his rectum and lower abdomen. History of Present Illness HPI narrative: Patient presents for acute abdominal pain. Patient states that he has been having abdominal pain since noon today. He has had nausea but no vomiting no diarrhea. He reports that he has not had a bowel movement in several days. Patient reports his only abdominal surgery was prostate surgery. He denies any chest pain fever chills hemoptysis hematochezia melena hematemesis hematuria. He has passed gas today with no relief. Related Data Home Medications ?Medication ?Instructions ?Recorded ?Confirmed quinapril 20 mg tablet 20 mg PO DAILY Hypertension 11/29/20 04/12/22 tamsulosin 0.4 mg capsule 0.4 mg PO HS PROSTATE 04/12/22 verapamil 120 mg 24 hr 120 mg PO DAILY Hypertension 11/29/20 04/12/22 capsule,extended release simvastatin 10 mg tablet 10 mg PO DAILY Cholesterol 0 03/05/22 04/12/22 Previous Rx's ?Medication ?Instructions ?Recorded cefdinir 300 mg capsule 300 mg PO BID 7 days #14 cap s 06/26/24 tamsulosin 0.4 mg capsule 0.4 mg PO DAILY #30 caps sulfamethoxazole 800 1 tab PO BID 5 days #10 tabs 02/22/25 mg-trimethoprim 160 mg tablet (Bactrim DS) Allergies Allergy/AdvReac Type Severity Reaction Status Date / Time No Known Allergies Allergy Verified 06/26/24 12:16 [facility] <ASHANTI Vickers - Last Filed: 02/22/25 21:09> [facility] Disclaimer: The information contained in this section may have been updated after the patient was seen, as this information can be updated by other users. Medical History High blood cholesterol High blood pressure Surgical History H/O hernia repair Family History Other Stroke Social History Smoking Status: Never smoker alcohol intake: never substance use type: denies use current occupational status: retired and other Travel in the last 8 weeks?: None household members: spouse and family housing: house Have you lived/traveled outside US in past 30 days?: No Contact w/someone who lives/traveled outside US past 30 days?: No Exposure to someone with infectious disease in past 14 days?: No Do you have a fever (greater than 100.4 F or 38 C)?: No Have you tested positive for COVID-19?: No Exposed to someone with COVID-19 in past 14 days?: No Do you have a sore throat?: No Do you have a cough?: No Do you have any weakness?: No Do you have any diarrhea?: No Are you experiencing any unusual bleeding?: No Do you have any muscle aches/pain?: No Do you have any abdominal pain?: No Are you experiencing loss of taste or smell?: No Other Medical History Have you received the Pneumonia Vaccine: Yes <ASHATNI Vickers - Last Filed: 02/22/25 21:09> ROS Obtained: Yes Systems reviewed as appropriate & no additional complaints except as documented Physical Exam <ASHANTI Vickers - Last Filed: 02/22/25 21:09> General General appearance: alert Respiratory Respiratory exam: Present normal lung sounds bilaterally Cardiovascular Cardiovascular exam: Present regular rate Neurological Exam Neurological exam: Present alert and oriented X3 Medical Decision Making <ASHANTI Vickers - Last Filed: 02/22/25 21:09> Medical Records Medical records reviewed: Yes I reviewed the patient's medical records. Screening: Per USPSTF and CDC recommendations, given the prevalence of disease in our region, it is our hospital?s policy to screen for HIV and viral Hepatitis for all patients aged 18 and over and those with ongoing risk factors. Billy Inquiry Pt receiving controlled substance: No Vital Signs: 02/22/25 18:06 02/22/25 18:09 02/22/25 18:31 Temperature 98.1 F Temperature Source Oral Pulse Rate 107 H 108 H Pulse Rate [Right Brachial] 100 H Respiratory Rate 20 Blood Pressure 157/100 H 165/106 H Blood Pressure [Right Arm] 157/100 H Blood Pressure Mean [Right Arm] 119 Blood Pressure Source [Right Arm] Automatic Cuff Blood Pressure Position Blood Pressure Position [Right Arm] Supine 02 Sat by Pulse Oximetry 99 98 96 Oxygen Delivery Method Room Air Room Air Room Air 02/22/25 19:00 02/22/25 19:30 02/22/25 20:00 Temperature Temperature Source Pulse Rate 99 H 92 H 93 H Pulse Rate [Right Brachial] Respiratory Rate Blood Pressure 164/84 H 150/80 H 128/62 Blood Pressure [Right Arm] Blood Pressure Mean [Right Arm] Blood Pressure Source [Right Arm] Blood Pressure Position Blood Pressure Position [Right Arm] 02 Sat by Pulse Oximetry 99 100 96 Oxygen Delivery Method Room Air Room Air Room Air 02/22/25 20:31 02/22/25 22:04 Temperature 98.4 F Temperature Source Oral Pulse Rate 95 H 64 Pulse Rate [Right Brachial] Respiratory Rate 20 Blood Pressure 111/78 112/64 Blood Pressure [Right Arm] Blood Pressure Mean [Right Arm] Blood Pressure Source [Right Arm] Blood Pressure Position Sitting Blood Pressure Position [Right Arm] 02 Sat by Pulse Oximetry 95 Oxygen Delivery Method Room Air Room Air Lab Data Lab results reviewed: Yes I reviewed the patient's lab results. Lab Results 02/22/25 18:50: WBC 13.1 H, RBC 5.05, Hgb 15.4, Hct 42.8, MCV 84.8, MCH 30.5, M CHC 36.0 H, RDW 11.9, Plt Count 257, MPV 9.2, Neut % (Auto) 72.8, Lymph % (Auto) 17.8, [place] % (Auto) 8.2, Eos % (Auto) 0.3, Baso % (Auto) 0.5, Neut # (Auto) 9.5 H, Lymph # (Auto) 2.3, [place] # (Auto) 1.1 H, Eos # (Auto) 0.0, Baso # (Auto) 0.1, Sodium 131 L, Potassium 3.7, Chloride 102, Carbon Dioxide 16 L, Anion Gap 16.7 H , BUN 16, Creatinine 1.00, Estimated Creat Clear 61, Estimated GFR 71, Est GFR ( Amer) 85, Glucose 112 H, Lactate 3.4 H, Calcium 10.5 H, Total Bilirubin 1.4 H, AST 33, ALT 22, Alkaline Phosphatase 122, Troponin I < 0.01, Total Protein 8.4 H, Albumin 4.2, Globulin 4.2 H, Albumin/Globulin Ratio 1.0 L, Procalcitonin 0.053, HCV Ab REJI w/Rflx PCR Qn Negative, HIV Ag/Ab Combo Qual Negative 02/22/25 19:52: Urine Color Yellow, Urine Appearance Clear, Urine pH 6.0, Ur Specific [place] 1.020, Urine Protein 2+ A, Urine Glucose (UA) Negative, Urine Ketones Trace, Urine Blood 1+ A, Urine Nitrate Negative, Urine Bilirubin Negative, Urine Urobilinogen 0.2, Ur Leukocyte Esterase Negative, Urine RBC 10- 20, Urine WBC 5-10, Urine Bacteria 1+ 02/22/25 18:50 02/22/25 18:50 Orders (Tests/Meds): ED MEDICATIONS Discontinued Medications Generic Name Dose Route Start Last Admin Trade Name Freq PRN Reason Stop Dose Admin Acetaminophen 1,000 mg 02/22/25 18:19 02/22/25 18:50 Acetaminophen 1,000mg/100ml Vial IV 02/22/25 18:20 1,000 mg ONCE ONE Administration Hydromorphone HCl 0.5 mg 02/22/25 18:19 02/22/25 18:51 Hydromorphone 2mg/Ml Syringe IV 02/22/25 18:20 0.5 mg ONCE ONE Administration Sodium Chloride 1,000 mls @ 999 mls/hr 02/22/25 18:19 02/22/25 18:50 Sod Chlor 0.9% 1000ml Bag IV 02/22/25 19:19 999 mls/hr .Q1H1M ONE Administration Iopamidol 80 ml 02/22/25 19:19 02/22/25 19:20 Iopamidol-370 (76%);100ml Bottle IV 02/22/25 19:20 80 ml ONCE ONE Administration Iopamidol 80 ml 02/22/25 19:23 02/22/25 19:26 Iopamidol-370 (76%);100ml Bottle IV 02/22/25 19:24 80 ml ONCE ONE Administration Lidocaine HCl 1 ml 02/22/25 20:15 02/22/25 20:17 Lidocaine 2% Urojet 10ml TP 02/22/25 20:16 1 ml ONCE ONE Administration Ondansetron HCl 4 mg 02/22/25 18:19 02/22/25 18:51 Ondansetron 4mg/2ml Vial IV 02/22/25 18:20 4 mg ONCE ONE Administration Sodium Chloride 50 ml 02/22/25 19:19 02/22/25 19:20 0.9 % Sodium Chloride 50 Ml Vial IV 02/22/25 19:20 50 ml ONCE ONE Administration Sodium Chloride 10 ml 02/22/25 19:19 02/22/25 19:20 Sodium Chloride 0.9% 10ml Syr (Rad Only) IV 02/22/25 19:20 10 ml ONCE ONE Administration Sodium Chloride 50 ml 02/22/25 19:23 02/22/25 19:26 0.9 % Sodium Chloride 50 Ml Vial IV 02/22/25 19:24 50 ml ONCE ONE Administration Sodium Chloride 10 ml 02/22/25 19:23 02/22/25 19:26 Sodium Chloride 0.9% 10ml Syr (Rad Only) IV 02/22/25 19:24 10 ml ONCE ONE Administration Trimethoprim/Sulfamethoxazole 1 each 02/22/25 20:38 02/22/25 20:44 Sulfa/Trimethoprim 1 Tablet PO 02/22/25 20:39 1 each ONCE ONE Administration ORDERS Category Date Time Status CT angio abdomen pelvis Stat Cat Scan 02/22/25 18:33 Completed CBC w/Auto Diff [Complete Blood Count Auto Diff] Stat Lab 02/22/25 18:50 Completed CMP [Comprehensive Metabolic Panel] Stat Lab 02/22/25 18:50 Completed HIV Combo Stat Lab 02/22/25 18:50 Completed Hepatitis C Ab Qual. W/ RFX Stat Lab 02/22/25 18:50 Completed Lactic Acid Stat Lab 02/22/25 18:50 Completed Procalcitonin Stat Lab 02/22/25 18:50 Completed Trop I [Troponin I] Stat Lab 02/22/25 18:50 Completed UA [Urinalysis and Microscopic] Stat Lab 02/22/25 19:52 Completed Medical Decision Narrative: In summary patient is a 89-year-old male who presents to the emergency department for evaluation of acute abdominal pain. Patient is initially hypertensive with a blood pressure 157/100 tachycardic at 100 with sinus tachycardia the bedside monitor breathing 20 times a minute satting at 90% on room air upon arrival, afebrile at 90.1. Physical exam is remarkable for an 89-year-old gentleman who is currently in severe abdominal pain. Abdomen is actually soft but exquisitely tender to palpation out of proportion to exam. Bowel sounds are quiescent.. Differential diagnosis includes bowel obstruction versus bowel perforation versus ischemia versus AAA etc. Initial workup will be conducted with hematologic labs CT scan angiogram of the abdomen urinalysis. Initial interventions include crystalloid bolus Tylenol Zofran Dilaudid. Initial workup reviewed by me and his hematologic labs are significant for a white count of 13.1 normal H&H with an absolute neutrophil count of 9.5, sodium is 131 CO2 16 gap 16.7 glucose 112 lactate was 3.4 calcium 10.5 total bilirubin 1.4 with normal transaminases troponin was less than 0.01 procalcitonin was 0.053 urinalysis had 2+ of protein 1+ of blood leukocyte esterase negative however microscopic exam had 10-20 red cells 5-10 white cells and 1+ bacteria. My informal interpretation of his CT scan abdomen pelvis shows a markedly dilated urinary bladder with irregular wall primarily inferiorly and posteriorly with what appears to be prostatic enlargement and possible prostatic invasion of the bladder neck, also a large rectal stool ball caused by his enlarged bladder. Given this I personally attempted Head placement and was unable to pass an 18 a 16 coud? tip 16 but was ultimately able to pass a 10 [place] straight Head and anchor. I had immediate return of what appeared to be clear urine. Upon repeat evaluation patient reported markedly improved abdominal pain after bladder decompression. Given this patient is appropriate for discharge as he has already established care with urology and will treat what appears to be a urinary tract infection with Bactrim with first dose given here and discharged with Head in place and Head care instructions. Patient's granddaughter was also present and they both verbalized understanding and agreement. They were given strict return precautions. <Hector Marquez MD - Last Filed: 02/23/25 10:02> Vital Signs: 02/22/25 18:06 02/22/25 18:09 02/22/25 18:31 Temperature 98.1 F Temperature Source Oral Pulse Rate 107 H 108 H Pulse Rate [Right Brachial] 100 H Respiratory Rate 20 Blood Pressure 157/100 H 165/106 H Blood Pressure [Right Arm] 157/100 H Blood Pressure Mean [Right Arm] 119 Blood Pressure Source [Right Arm] Automatic Cuff Blood Pressure Position Blood Pressure Position [Right Arm] Supine 02 Sat by Pulse Oximetry 99 98 96 Oxygen Delivery Method Room Air Room Air Room Air 02/22/25 19:00 02/22/25 19:30 02/22/25 20:00 Temperature Temperature Source Pulse Rate 99 H 92 H 93 H Pulse Rate [Right Brachial] Respiratory Rate Blood Pressure 164/84 H 150/80 H 128/62 Blood Pressure [Right Arm] Blood Pressure Mean [Right Arm] Blood Pressure Source [Right Arm] Blood Pressure Position Blood Pressure Position [Right Arm] 02 Sat by Pulse Oximetry 99 100 96 Oxygen Delivery Method Room Air Room Air Room Air 02/22/25 20:31 02/22/25 22:04 Temperature 98.4 F Temperature Source Oral Pulse Rate 95 H 64 Pulse Rate [Right Brachial] Respiratory Rate 20 Blood Pressure 111/78 112/64 Blood Pressure [Right Arm] Blood Pressure Mean [Right Arm] Blood Pressure Source [Right Arm] Blood Pressure Position Sitting Blood Pressure Position [Right Arm] 02 Sat by Pulse Oximetry 95 Oxygen Delivery Method Room Air Room Air Lab Data Lab Results 02/22/25 18:50: WBC 13.1 H, RBC 5.05, Hgb 15.4, Hct 42.8, MCV 84.8, MCH 30.5, M CHC 36.0 H, RDW 11.9, Plt Count 257, MPV 9.2, Neut % (Auto) 72.8, Lymph % (Auto) 17.8, [place] % (Auto) 8.2, Eos % (Auto) 0.3, Baso % (Auto) 0.5, Neut # (Auto) 9.5 H, Lymph # (Auto) 2.3, [place] # (Auto) 1.1 H, Eos # (Auto) 0.0, Baso # (Auto) 0.1, Sodium 131 L, Potassium 3.7, Chloride 102, Carbon Dioxide 16 L, Anion Gap 16.7 H , BUN 16, Creatinine 1.00, Estimated Creat Clear 61, Estimated GFR 71, Est GFR ( Amer) 85, Glucose 112 H, Lactate 3.4 H, Calcium 10.5 H, Total Bilirubin 1.4 H, AST 33, ALT 22, Alkaline Phosphatase 122, Troponin I < 0.01, Total Protein 8.4 H, Albumin 4.2, Globulin 4.2 H, Albumin/Globulin Ratio 1.0 L, Procalcitonin 0.053, HCV Ab REJI w/Rflx PCR Qn Negative, HIV Ag/Ab Combo Qual Negative 02/22/25 19:52: Urine Color Yellow, Urine Appearance Clear, Urine pH 6.0, Ur Specific [place] 1.020, Urine Protein 2+ A, Urine Glucose (UA) Negative, Urine Ketones Trace, Urine Blood 1+ A, Urine Nitrate Negative, Urine Bilirubin Negative, Urine Urobilinogen 0.2, Ur Leukocyte Esterase Negative, Urine RBC 10- 20, Urine WBC 5-10, Urine Bacteria 1+ Orders (Tests/Meds): ED MEDICATIONS Discontinued Medications Generic Name Dose Route Start Last Admin Trade Name Freq PRN Reason Stop Dose Admin Acetaminophen 1,000 mg 02/22/25 18:19 02/22/25 18:50 Acetaminophen 1,000mg/100ml Vial IV 02/22/25 18:20 1,000 mg ONCE ONE Administration Hydromorphone HCl 0.5 mg 02/22/25 18:19 02/22/25 18:51 Hydromorphone 2mg/Ml Syringe IV 02/22/25 18:20 0.5 mg ONCE ONE Administration Sodium Chloride 1,000 mls @ 999 mls/hr 02/22/25 18:19 02/22/25 18:50 Sod Chlor 0.9% 1000ml Bag IV 02/22/25 19:19 999 mls/hr .Q1H1M ONE Administration Iopamidol 80 ml 02/22/25 19:19 02/22/25 19:20 Iopamidol-370 (76%);100ml Bottle IV 02/22/25 19:20 80 ml ONCE ONE Administration Iopamidol 80 ml 02/22/25 19:23 02/22/25 19:26 Iopamidol-370 (76%);100ml Bottle IV 02/22/25 19:24 80 ml ONCE ONE Administration Lidocaine HCl 1 ml 02/22/25 20:15 02/22/25 20:17 Lidocaine 2% Urojet 10ml TP 02/22/25 20:16 1 ml ONCE ONE Administration Ondansetron HCl 4 mg 02/22/25 18:19 02/22/25 18:51 Ondansetron 4mg/2ml Vial IV 02/22/25 18:20 4 mg ONCE ONE Administration Sodium Chloride 50 ml 02/22/25 19:19 02/22/25 19:20 0.9 % Sodium Chloride 50 Ml Vial IV 02/22/25 19:20 50 ml ONCE ONE Administration Sodium Chloride 10 ml 02/22/25 19:19 02/22/25 19:20 Sodium Chloride 0.9% 10ml Syr (Rad Only) IV 02/22/25 19:20 10 ml ONCE ONE Administration Sodium Chloride 50 ml 02/22/25 19:23 02/22/25 19:26 0.9 % Sodium Chloride 50 Ml Vial IV 02/22/25 19:24 50 ml ONCE ONE Administration Sodium Chloride 10 ml 02/22/25 19:23 02/22/25 19:26 Sodium Chloride 0.9% 10ml Syr (Rad Only) IV 02/22/25 19:24 10 ml ONCE ONE Administration Trimethoprim/Sulfamethoxazole 1 each 02/22/25 20:38 02/22/25 20:44 Sulfa/Trimethoprim 1 Tablet PO 02/22/25 20:39 1 each ONCE ONE Administration ORDERS Category Date Time Status CT angio abdomen pelvis Stat Cat Scan 02/22/25 18:33 Completed CBC w/Auto Diff [Complete Blood Count Auto Diff] Stat Lab 02/22/25 18:50 Completed CMP [Comprehensive Metabolic Panel] Stat Lab 02/22/25 18:50 Completed HIV Combo Stat Lab 02/22/25 18:50 Completed Hepatitis C Ab Qual. W/ RFX Stat Lab 02/22/25 18:50 Completed Lactic Acid Stat Lab 02/22/25 18:50 Completed Procalcitonin Stat Lab 02/22/25 18:50 Completed Trop I [Troponin I] Stat Lab 02/22/25 18:50 Completed UA [Urinalysis and Microscopic] Stat Lab 02/22/25 19:52 Completed Medical Decision Narrative: In summary patient is a 89-year-old male who presents to the emergency department for evaluation of acute abdominal pain. Patient is initially hypertensive with a blood pressure 157/100 tachycardic at 100 with sinus tachycardia the bedside monitor breathing 20 times a minute satting at 90% on room air upon arrival, afebrile at 98.1. Physical exam is remarkable for an 89-year-old gentleman who is currently in severe abdominal pain. Abdomen is actually soft but exquisitely tender to palpation out of proportion to exam. Bowel sounds are quiescent.. Differential diagnosis includes bowel obstruction versus bowel perforation versus ischemia versus AAA etc. Initial workup will be conducted with hematologic labs CT scan angiogram of the abdomen urinalysis. Initial interventions include crystalloid bolus Tylenol Zofran Dilaudid. Initial workup reviewed by me and his hematologic labs are significant for a white count of 13.1 normal H&H with an absolute neutrophil count of 9.5, sodium is 131 CO2 16 gap 16.7 glucose 112 lactate was 3.4 calcium 10.5 total bilirubin 1.4 with normal transaminases troponin was less than 0.01 procalcitonin was 0.053 urinalysis had 2+ of protein 1+ of blood leukocyte esterase negative however microscopic exam had 10-20 red cells 5-10 white cells and 1+ bacteria. My informal interpretation of his CT scan abdomen pelvis shows a markedly dilated urinary bladder with irregular wall primarily inferiorly and posteriorly with what appears to be prostatic enlargement and possible prostatic invasion of the bladder neck, also a large rectal stool ball caused by his enlarged bladder. Given this I personally attempted Head placement and was unable to pass an 18 a 16 coud? tip 16 but was ultimately able to pass a 10 [place] straight Head and anchor. I had immediate return of what appeared to be clear urine. Upon repeat evaluation patient reported markedly improved abdominal pain after bladder decompression. Given this patient is appropriate for discharge as he has already established care with urology and will treat what appears to be a urinary tract infection with Bactrim with first dose given here and discharged with Head in place and Head care instructions. Patient's granddaughter was also present and they both verbalized understanding and agreement. They were given strict return precautions. I was consulted by the [facility], and we discussed the complexity of the problems being addressed. I approve the treatment and management plan for this patient's care in the emergency department, thus performing a substantive portion of the medical decision making. Formal radiology interpretation shows distended urinary bladder and asymmetric wall thickening in the posterior superior aspect of the urinary bladder suspicious for chronic bladder outlet obstruction. Neoplasm could have a similar appearance. Urology consultation was recommended. He was also noted to have an enlarged prostate. No aneurysm or dissection is noted. Given patient is already established with a urologist and has had relief of symptoms after Head catheter placement, is felt that he is appropriate for discharge at this time and patient stated that he does not want to be admitted to the hospital. Hector Marquez MD Procedures <ASHANTI Vickers - Last Filed: 02/22/25 21:09> Catheter Insertion (Urinary) Prophylactic Antibiotics Given: No Bladder Scan/US before Catheterization: No Preparation: Povidone-Iodine Type of Catheter Inserted: 2 way Catheter [place] Size: 10 Catheter balloon size (mL): 5 Topical Anesthesia Used: Yes Results: successfully catheterized-immediate flow Patient Tolerated Procedure: well and no complications Complications: none Critical Care <ASHANTI Vickers - Last Filed: 02/22/25 21:09> Critical Care Time Critical Care Time: Yes Attestation: On 02/22/25, the high probability of a clinically significant, sudden or life threatening deterioration of the following system(s) required my full and direct attention, intervention and personal management. The time I documented below is in addition to time spent performing reported procedures but includes the following listed in this critical care notation. Total Time Total Critical Care Time: 30
--- OUTSIDE RECORDS SUMMARY | 2025-02-22 18:19 | XMS_ITS | Clinical Summary ---
[facility] Address [address] [place] [id number] Care Team Providers Care Hr Associate Name Role Phone Provider, No Known Primary Care Provider Unavail able Allergies No known active allergies Medications quinapril (ACCUPRIL) 20 MG tablet Take 20 mg by mouth Every Night. Active simvastatin (ZOCOR) 10 MG tablet Take 10 mg by mouth Every Night. Active tamsulosin (FLOMAX) 0.4 MG capsule 24 hr capsule Take 1 capsule by mouth Daily. Active verapamil SR (CALAN-SR) 120 MG CR tablet Take 120 mg by mouth Every Night. Active HYDROcodone-acet aminophen (NORCO) 5-325 MG per tabletIndication s:BPH with urinary obstruction Take 1 tablet by mouth Every 6 (Six) Hours As Needed for Moderate Pain. 10 tablet 2 Active sulfamethoxazole -trimethoprim (Bactrim DS) 800-160 MG per tabletIndication s:BPH with urinary obstruction Take 1 tablet by mouth 2 (Two) Times a Day. 20 tablet 2 Active docusate sodium (Colace) 100 MG capsuleIndicatio ns:BPH with urinary obstruction Take 1 capsule by mouth Daily As Needed for Constipation. 30 capsule 1 2 Active Active Problems No known active problems Social History Tobacco Use Types Packs/Day Years Used Date Smoking Tobacco: Former Pipe Cigars Tobacco Cessation:Counseling Given: Not Answered Alcohol Use Standard Drinks/Week Comments Never 0 (1 standard drink = 0.6 oz pur e alcohol) Abuse Screen Answer Date Recorded Unsafe at Home or Work/School Not on file Feels Threatened by Someone? Not on file 06/2023 Does Anyone Keep You from Co ntacting Others or Doint Things Outside the Home? Not on file 07/11/2023 Physical Sign of Abuse Present Not on file 1 09/11/2022 Housing Stability Answer Date Recorded Current Living Arrangements Not on file 07/01 Potentially Unsafe Housing Conditions Not on svitlana e 07/11/2023 Family and Community Support Answer Robert e Recorded Help with Day-to-Day Activities Not on file 05/13/2023 Lonely or Isolated Not on file 05/13/2023 Employment Answer Date Recorded Do you want help finding or keeping work or a pippa b? Not on file 05/13/2023 Disabilities Answer Date Recorded Concentrating, Remembering, or Making Decisions Difficulty Not on file 07/11/2023 Doing Errands Independently Difficulty Not on fi le 07/11/2023 Education Answer Date Recorded Help with school or training? Not on file Preferred Language Not on file 05/13/2023 Sex and Gender Information Value Date Recorded Sex Assigned at Not on file Legal Sex Male 1:23 PM EST Gender Identity Not on file Sexual Orientation Not on file Last Filed Vital Signs Vital Sign Reading Time Taken Comments Blood Pressure 151/87 07/02/2022 1:30 PM EST Pulse 77 07/02/2022 1:30 PM EST Temperature 36.7 C (98 F) 07/02/2022 1:30 PM EST Respiratory Rate 16 07/02/2022 1:30 PM EST Oxygen Saturation 97% 07/02/2022 1:30 PM EST Inhaled Oxygen Concentration - - Weight 86.2 kg (190 lb) 07/02/2022 8:37 AM EST Height 172.7 cm (5' 8 ) 07/02/2022 8:37 AM EST Body Mass Index 28.89 07/02/2022 8:37 AM EST Plan of Treatment Health Maintenance Due Date Last Done Comments ANNUAL PHYSICAL 1936 TDAP/TD VACCINES (1 - Tdap) 1955 Pneumococcal Vaccine 50+ (1 of 1 - PCV) 1986 ZOSTER VACCINE (1 of 2) 1986 RSV Vaccine - Adults (1 - 1- dose 75+ series) 2011 COVID-19 Vaccine (1 - 2023- season) 2024 INFLUENZA VACCINE 05/01/2025 06/12/2022, 05/22/2021 Insurance [employer] Care Teams Hr Associate Relationship Specialty Start Date End Date Provider, No Known [facility] [place] [phone] PCP - General 06/15/22
--- OUTSIDE RECORDS SUMMARY | 2025-02-22 18:19 | XMS_ITS | Continuity of Care Document ---
Author Organization [facility] Address [address] [place] [address] Care Team Providers Care Drag Out Man Name Role Phone MEDRANOGUILLAUMEDY Referring Provider Assessment No assessment recorded. Plan of Treatment Reminders Order Date Submit Date Provider Last Modified By Organization Details Last Modified Time Details Appointments RECHECK 2024 01:30P M ARTURO LOZANO MD Not available Not available Not available Lab urinalysi s panel, auto 2024 025 Formerly [facility], [address], [place], [address], 02/15/2025 08:39:47 Referral None recorded. Procedures None recorded. Surgeries None recorded. Imaging None recorded. Medication Orders None recorded. Patient TargetsNo targets recorded. Patient InstructionsNo instructions recorded. Reason for Referral None Reported. Results Created Date Observation Date Name Description Value Unit Range Abnormal Flag Note LastModifiedBy Organization Detail LastModifiedTime 01/31/2001/30/2025 URINE CULTU RE klebsiella oxytoca Organi sm: Klebsi dorothea oxytoc a Not Available [facility] [address] [facility], [place], [address], 02/01/2025 15:57:06 01/31/2002/01/2025 URINE CULTU RE urine culture abnormal ISOLA TE #1 COLON Y COUNT : > 100,0 00 CFU/M L Proba ble Gram Negat preethi Bacil vonda. ID and sensi tivit y in progr ess. See [place] te Resul t(s) Below Klebs iella oxyto ca Not Available [facility] [address] [place] [address], [phone], 02/01/2025 15:57:06 01/31/20 25 02/01/2025 URINE CULTU RE amox/K clav'ate(C) <=8/4 ug/mL susceptib le Not Available [facility] [address] [place] [address], [phone], 02/01/2025 15:57:06 01/31/20 25 02/01/2025 URINE CULTU RE cefazolin 8 ug/mL susceptib le Not Available [facility] [address] [place] [address], [address], 02/01/2025 15:57:06 01/31/20 25 02/01/2025 URINE CULTU RE ceftazidime <=1 ug/mL susceptib le Not Available [facility] [address] [place] [address], [address], 02/01/2025 15:57:06 01/31/20 25 02/01/2025 URINE CULTU RE ceftriaxone <=1 ug/mL susceptib le Not Available [facility] [address] [place] [address], [address], 02/01/2025 15:57:06 01/31/20 25 02/01/2025 URINE CULTU RE cefuroxime <=4 ug/mL susceptib le Not Available [facility] [address] [place] [address], [address], 02/01/2025 15:57:06 01/31/20 25 02/01/2025 URINE CULTU RE ciprofloxaci n <=0.25 ug/mL susceptib le Not Available [facility] [address] [place] [address], [address], 02/01/2025 15:57:06 01/31/20 25 02/01/2025 URINE CULTU RE gentamicin <=4 ug/mL susceptib le Not Available [facility] [address] [place] [address], [address], 02/01/2025 15:57:06 01/31/20 25 02/01/2025 URINE CULTU RE imipenem <=1 ug/mL susceptib le Not Available [facility] [address] [place] [address], [address], 02/01/2025 15:57:06 01/31/20 25 02/01/2025 URINE CULTU RE levofloxacin <=0.5 ug/mL susceptib le Not Available [facility] [address] [place] [address], [address], 02/01/2025 15:57:06 01/31/20 25 02/01/2025 URINE CULTU RE nitrofuranto in <=32 ug/mL susceptib le Not Available [facility] [address] [place] [address], [address], 02/01/2025 15:57:06 01/31/20 25 02/01/2025 URINE CULTU RE piperacillin /rodri <=16 ug/mL susceptib le Not Available [facility] [address] [place] [address], [address], 02/01/2025 15:57:06 01/31/20 25 02/01/2025 URINE CULTU RE tetracycline <=4 ug/mL susceptib le Not Available [facility] [address] [place] [address], [address], 02/01/2025 15:57:06 01/31/20 25 02/01/2025 URINE CULTU RE tobramycin <=2 ug/mL susceptib le Not Available [facility] [address] [place] [address], [address], 02/01/2025 15:57:06 01/31/20 25 02/01/2025 URINE CULTU RE trimeth/sulf a <=2/38 ug/mL susceptib le Not Available [facility] [address] [place] [address], [place], [address], 02/01/2025 15:57:06 01/31/20 25 01/30/2025 urina lysis panel , auto Unknown Analyte Clean Catch Not Available [facility] [address], [place], [address], 01/30/2025 16:40:13 01/31/20 25 01/30/2025 urina lysis panel , auto Unknown Analyte Yellow Not Available [facility] [address], [place], [address], 01/30/2025 16:40:13 01/31/20 25 01/30/2025 urina lysis panel , auto Unknown Analyte Cloudy Not Available [facility] [address], [place], [address], 01/30/2025 16:40:13 01/31/20 25 01/30/2025 urina lysis panel , auto Unknown Analyte 1.015 Not Available [facility] [address], [place], [address], 01/30/2025 16:40:13 01/31/20 25 01/30/2025 urina lysis panel , auto Unknown Analyte 1.003 - 1.030 Not Available [facility] [address], [place], [address], 01/30/2025 16:40:13 01/31/20 25 01/30/2025 urina lysis panel , auto Unknown Analyte 5.0 Not Available [facility] [address], [place], [address], 01/30/2025 16:40:13 01/31/20 25 01/30/2025 urina lysis panel , auto Unknown Analyte 5.0 - 8.0 Not Available [facility] [address], [place], [address], 01/30/2025 16:40:13 01/31/20 25 01/30/2025 urina lysis panel , auto Unknown Analyte 500 Karin/uL Not Available [facility] [address], [place], [address], 01/30/2025 16:40:13 01/31/20 25 01/30/2025 urina lysis panel , auto Unknown Analyte Negati ve Not Available [facility] [address], [place], [address], 01/30/2025 16:40:13 01/31/20 25 01/30/2025 urina lysis panel , auto Unknown Analyte POSITI VE (Abnor mal) Not Available [facility] [address], [place], [address], 01/30/2025 16:40:13 01/31/20 25 01/30/2025 urina lysis panel , auto Unknown Analyte Negati ve Not Available [facility] [address], [place], [address], 01/30/2025 16:40:13 01/31/20 25 01/30/2025 urina lysis panel , auto Unknown Analyte 30 mg/dL Not Available [facility] [address], [place], [address], 01/30/2025 16:40:13 01/31/20 25 01/30/2025 urina lysis panel , auto Unknown Analyte Negati ve Not Available [facility] [address], [place], [address], 01/30/2025 16:40:13 01/31/20 25 01/30/2025 urina lysis panel , auto Unknown Analyte Normal Not Available [facility] [address], [place], [address], 01/30/2025 16:40:13 01/31/20 25 01/30/2025 urina lysis panel , auto Unknown Analyte Normal Not Available [facility] [address], [place], [address], 01/30/2025 16:40:13 01/31/20 25 01/30/2025 urina lysis panel , auto Unknown Analyte 15 mg/dL Not Available [facility] [address], [place], [address], 01/30/2025 16:40:13 01/31/20 25 01/30/2025 urina lysis panel , auto Unknown Analyte Negati ve Not Available [facility] [address], [place], [address], 01/30/2025 16:40:13 01/31/20 25 01/30/2025 urina lysis panel , auto Unknown Analyte Normal Not Available [facility] [address], [place], [address], 01/30/2025 16:40:13 01/31/20 25 01/30/2025 urina lysis panel , auto Unknown Analyte Normal Not Available [facility] [address], [place], [address], 01/30/2025 16:40:13 01/31/20 25 01/30/2025 urina lysis panel , auto Unknown Analyte Negati ve Not Available [facility] [address], [place], [address], 01/30/2025 16:40:13 01/31/20 25 01/30/2025 urina lysis panel , auto Unknown Analyte Negati ve Not Available [facility] [address], [place], [address], 01/30/2025 16:40:13 01/31/20 25 01/30/2025 urina lysis panel , auto Unknown Analyte 50 Paras/uL Not Available [facility] [address], [place], [address], 01/30/2025 16:40:13 01/31/20 25 01/30/2025 urina lysis panel , auto Unknown Analyte Negati ve Not Available [facility] [address], [place], [address], 01/30/2025 16:40:13 02/14/20 25 02/13/2025 urina lysis panel , auto Unknown Analyte Clean Catch Not Available [facility] [address], [place], [address], 02/13/2025 15:30:44 02/14/20 25 02/13/2025 urina lysis panel , auto Unknown Analyte Yellow Not Available [facility] [address], [place], [address], 02/13/2025 15:30:44 02/14/20 25 02/13/2025 urina lysis panel , auto Unknown Analyte Clear Not Available [facility] [address], [place], [address], 02/13/2025 15:30:44 02/14/20 25 02/13/2025 urina lysis panel , auto Unknown Analyte 1.020 Not Available [facility] [address], [place], [address], 02/13/2025 15:30:44 02/14/20 25 02/13/2025 urina lysis panel , auto Unknown Analyte 1.003 - 1.030 Not Available [facility] [address], [place], [address], 02/13/2025 15:30:44 02/14/20 25 02/13/2025 urina lysis panel , auto Unknown Analyte 5.0 Not Available [facility] [address], [place], [address], 02/13/2025 15:30:44 02/14/20 25 02/13/2025 urina lysis panel , auto Unknown Analyte 5.0 - 8.0 Not Available [facility] [address], [place], [address], 02/13/2025 15:30:44 02/14/20 25 02/13/2025 urina lysis panel , auto Unknown Analyte 25 Karin/uL Not Available [facility] [address], [place], [address], 02/13/2025 15:30:44 02/14/20 25 02/13/2025 urina lysis panel , auto Unknown Analyte Negati ve Not Available [facility] [address], [place], [address], 02/13/2025 15:30:44 02/14/20 25 02/13/2025 urina lysis panel , auto Unknown Analyte Negati ve Not Available [facility] [address], [place], [address], 02/13/2025 15:30:44 02/14/20 25 02/13/2025 urina lysis panel , auto Unknown Analyte Negati ve Not Available [facility] [address], [place], [address], 02/13/2025 15:30:44 02/14/20 25 02/13/2025 urina lysis panel , auto Unknown Analyte Trace Not Available [facility] [address], [place], [address], 02/13/2025 15:30:44 02/14/20 25 02/13/2025 urina lysis panel , auto Unknown Analyte Negati ve Not Available [facility] [address], [place], [address], 02/13/2025 15:30:44 02/14/20 25 02/13/2025 urina lysis panel , auto Unknown Analyte Normal Not Available [facility] [address], [place], [address], 02/13/2025 15:30:44 02/14/20 25 02/13/2025 urina lysis panel , auto Unknown Analyte Normal Not Available [facility] [address], [place], [address], 02/13/2025 15:30:44 02/14/20 25 02/13/2025 urina lysis panel , auto Unknown Analyte Negati ve Not Available [facility] [address], [place], [address], 02/13/2025 15:30:44 02/14/20 25 02/13/2025 urina lysis panel , auto Unknown Analyte Negati ve Not Available [facility] [address], [place], [address], 02/13/2025 15:30:44 02/14/20 25 02/13/2025 urina lysis panel , auto Unknown Analyte Normal Not Available [facility] [address], [place], [address], 02/13/2025 15:30:44 02/14/20 25 02/13/2025 urina lysis panel , auto Unknown Analyte Normal Not Available [facility] [address], [place], [address], 02/13/2025 15:30:44 02/14/20 25 02/13/2025 urina lysis panel , auto Unknown Analyte Negati ve Not Available [facility] [address], [place], [address], 02/13/2025 15:30:44 02/14/20 25 02/13/2025 urina lysis panel , auto Unknown Analyte Negati ve Not Available [facility] [address] [facility] [address], [place], [address], 02/13/2025 15:30:44 02/14/20 25 02/13/2025 urina lysis panel , auto Unknown Analyte 50 Paras/uL Not Available [facility] [address], [place], [address], 02/13/2025 15:30:44 02/14/20 25 02/13/2025 urina lysis panel , auto Unknown Analyte Negati ve Not Available [facility] [address], [place], [address], 02/13/2025 15:30:44 Result Notes None recorded. Problems No Known Problems Procedures Surgical History Date Name Laterality Status Provider Name and Address Organization Details Recorded Time Post Void Residual; Ultrasound completed Johana Hamilton [facility] 01/30/2025 16:50:51 Imaging Results None recorded. Procedure Notes None recorded. Medical Equipment None Reported. Allergies No known drug allergies Medications Name Sig Start Date Stop Date Status Note LastModified by Organization Details LastModified Time simvastatin 10 mg tablet Take 1 tablet every day by oral route. active Not Available Not Available No t Available tamsulosin 0.4 mg capsule Take 1 capsule every day by oral route. 10/26 completed Not Available Not Available Not Available Cipro 250 mg tablet Take 1 tablet every 12 hours by oral route for 15 days. 2024 active Not Available Not Available Not Avai lable Bactrim DS 800 mg-160 mg tablet Take 1 tablet every 12 hours by oral route. 10/26 completed Not Available Not Available Not Available quinapril active Not Available Not Johanna ilable Not Available verapamil active Not Available Not Johanna ilable Not Available Vitals Date Recorded Body height Body mass index (BMI) Body weight Provider Name and Address Organization Details Last Updated DateTime 02/13/2025 172.72 cm 28.1 kg/m2 96161.59 g Pili Julian [facility] 02/13/2025 14:30:11 Social History Question Answer Notes LastModified by Organizat ion Details LastModified Time Tobacco Smoking Status Former Smoker quit over 40 years ago Nicolasa Munson gildardo, [facility] 05/25/2022 16:38:14 What Was The Date Of Your Most Recent Tobacco Screening? 01/30/2025 [email or web address] Information not available 01/30/2025 What Is Your Relationship Status? [email or web address] Information not available 05/25/2022 Sex: Unknown Functional Status Question Answer Note LastModified by Organization D etails LastModified Time What is your level of alcohol consumption? None Information not available 05/25/2022 Mental Status None recorded. Family History Relationship Description Onset Age of this Age Resolved Age Notes LastModified by Organization Details LastModified Time Father No current problems or disability [email or web address] Not available 05/25 16:37:56 Mother No current problems or disability [email or web address] Not available 05/25 16:37:56 Medical History Condition Response Hypertension Y Past Encounters Encounter ID Performer Location Encounter Start Date Encounter Closed Date Diagnosis/Indication Diagnosis SNOMED-CT Code Diagnosis ICD10 Code Diagnosis Note [id number] MD [facility] [address] [place] [address] 01/30/2025 16:39:45 02/05/2025 12:51:50 Acute urinary tract infection 850755698 N39.0 Benign pro static hyperplasia with outflow obstruction 037136148 N40.1 N13.8 Much improved following greenlight laser vaporizati on of the prostate. [id number] MD [facility] [address] [place] [address] 02/13/2025 14:07:48 02/13/2025 15:50:34 Benign prostatic hyperplasia with outflow obstruction 848188048 N40.1 N13.8 Much improved following greenlight laser vaporizati on of the prostate. Acute cystitis 78557107 N30.00 He will complete the Cipro and follow-up in 1 month Health Concerns Section Related Observation LastModified by Organization Detai ls LastModified Time None Recorded Concern Status LastModified by Organization Details LastModified Time None Recorded Payers Encounter Date Sequence Insurance Name Policy Number Policy Blank Covered Member ID Blank Member ID Guarantor Name 02/13/2025 1 [place] [id number] Isaak Mahmood Jr [id number] Isaak Mahmood Notes Date Note Type Note Provider Name and Address Organization Details Recorded Time 02/13/2025 text/html + Patient is here in follow-up of visit 2 weeks ago for urinary infection. He was also having some urgency symptoms and frequency. His urgency and frequency is much better. His urine follow-up culture was positive and he has 6 more days of Cipro. His urine specimen today is much improved. There is nitrite negative. He still has nocturia x 2-3 but is voiding bigger volumes when he does have the urge to void. I suggest we see him back in 1 month and see how he is doing. He had greenlight laser vaporization of the prostate about 2-1/2 years ago. ARTURO LOZANO MD [facility] [place], [address], [facility] 02/15/2025 08:40:34
--- OUTSIDE RECORDS SUMMARY | 2025-02-22 18:19 | XMS_ITS | Continuity of Care Document ---
Author Organization [facility] Kaz cole CUA [facility] Address [address] [place] [address] Care Team Providers Care Core Extruder Name Role Phone ZAHRA MEDRANO Referring Provider Assessment No assessment recorded. Plan of Treatment Reminders Order Date Submit Date Provider Last Modified By Organization Details Last Modified Time Details Appointments RECHECK 2024 01:30P M ARTURO LOZANO MD Not available Not available Not available Lab urinalysi s panel, auto [email or web address] [facility], [address], [place], [address], 01/30/2025 17:25:29 culture, urine 2024 025 [facility], [facility], [place], [address], 01/31/2025 10:46:18 Referral None recorded. Procedures None recorded. Surgeries None recorded. Imaging None recorded. Medication Orders Cipro 250 mg tablet 2024 025 [facility], [address] [facility], [place], [address], 02/03/2025 12:57:41 Patient TargetsNo targets recorded. Patient InstructionsNo instructions recorded. Reason for Referral None Reported. Results Created Date Observation Date Name Description Value Unit Range Abnormal Flag Note LastModifiedBy Organization Detail LastModifiedTime 01/31/2001/30/2025 URINE CULTU RE klebsiella oxytoca Organi sm: Klebsi dorothea oxytoc a Not Available [facility] [address] [place] [address], [phone], 02/01/2025 15:57:06 01/31/20 25 02/01/2025 URINE CULTU RE urine culture abnormal ISOLA TE #1 COLON Y COUNT : > 100,0 00 CFU/M L Proba ble Gram Negat preethi Bacil vonda. ID and sensi tivit y in progr ess. See [place] te Resul t(s) Below Klebs iella oxyto ca Not Available [facility] [address] [place] [address], [phone], 02/01/2025 15:57:06 01/31/20 25 02/01/2025 URINE CULTU RE amox/K clav'ate(C) <=8/4 ug/mL susceptib le Not Available [facility] [address] [place] [address], [phone], 02/01/2025 15:57:06 01/31/20 25 02/01/2025 URINE CULTU RE cefazolin 8 ug/mL susceptib le Not Available [facility] [address] [place] [address], [address], 02/01/2025 15:57:06 01/31/20 25 02/01/2025 URINE CULTU RE ceftazidime <=1 ug/mL susceptib le Not Available [facility] [address] [place] [address], [address], 02/01/2025 15:57:06 01/31/20 25 02/01/2025 URINE CULTU RE ceftriaxone <=1 ug/mL susceptib le Not Available [facility] [address] [place] [address], [address], 02/01/2025 15:57:06 01/31/20 25 02/01/2025 URINE CULTU RE cefuroxime <=4 ug/mL susceptib le Not Available [facility] [address] [place] [address], [address], 02/01/2025 15:57:06 01/31/20 25 02/01/2025 URINE CULTU RE ciprofloxaci n <=0.25 ug/mL susceptib le Not Available [facility] [address] [place] [address], [address], 02/01/2025 15:57:06 01/31/20 25 02/01/2025 URINE CULTU RE gentamicin <=4 ug/mL susceptib le Not Available [facility] [address] [place] [address], [address], 02/01/2025 15:57:06 01/31/20 25 02/01/2025 URINE CULTU RE imipenem <=1 ug/mL susceptib le Not Available [facility] [address] [place] [address], [phone], 02/01/2025 15:57:06 01/31/20 25 02/01/2025 URINE CULTU RE levofloxacin <=0.5 ug/mL susceptib le Not Available [facility] [address] [place] [address], [phone], 02/01/2025 15:57:06 01/31/20 25 02/01/2025 URINE CULTU RE nitrofuranto in <=32 ug/mL susceptib le Not Available [facility] [address] [place] [address], [address], 02/01/2025 15:57:06 01/31/20 25 02/01/2025 URINE CULTU RE piperacillin /rodri <=16 ug/mL susceptib le Not Available [facility] [address] [place] [address], [address], 02/01/2025 15:57:06 01/31/20 25 02/01/2025 URINE CULTU RE tetracycline <=4 ug/mL susceptib le Not Available [facility] [address] [place] [address], [address], 02/01/2025 15:57:06 01/31/20 25 02/01/2025 URINE CULTU RE tobramycin <=2 ug/mL susceptib le Not Available [facility] [address] [place] [address], [address], 02/01/2025 15:57:06 01/31/20 25 02/01/2025 URINE CULTU RE trimeth/sulf a <=2/38 ug/mL susceptib le Not Available [facility] [address] [place], [address], 02/01/2025 15:57:06 01/31/20 25 01/30/2025 urina lysis panel , auto Unknown Analyte Clean Catch Not Available [facility] [address] [address], [place], [address], 01/30/2025 16:40:13 01/31/20 25 01/30/2025 urina lysis panel , auto Unknown Analyte Yellow Not Available [facility] [address] [address], [place], [address], 01/30/2025 16:40:13 01/31/20 25 01/30/2025 urina lysis panel , auto Unknown Analyte Cloudy Not Available [facility] [address], [place], [address], 01/30/2025 16:40:13 01/31/20 25 01/30/2025 urina lysis panel , auto Unknown Analyte 1.015 Not Available [facility] [address], [place], [address], 01/30/2025 16:40:13 01/31/20 25 01/30/2025 urina lysis panel , auto Unknown Analyte 1.003 - 1.030 Not Available [facility] [address], [place], [address], 01/30/2025 16:40:13 01/31/20 25 01/30/2025 urina lysis panel , auto Unknown Analyte 5.0 Not Available [facility] [address], [place], [address], 01/30/2025 16:40:13 01/31/20 25 01/30/2025 urina lysis panel , auto Unknown Analyte 5.0 - 8.0 Not Available [facility] [address], [place], [address], 01/30/2025 16:40:13 01/31/20 25 01/30/2025 urina lysis panel , auto Unknown Analyte 500 Karin/uL Not Available [facility] [address], [place], [address], 01/30/2025 16:40:13 01/31/20 25 01/30/2025 urina lysis panel , auto Unknown Analyte Negati ve Not Available [facility] [address], [place], [address], 01/30/2025 16:40:13 01/31/20 25 01/30/2025 urina lysis panel , auto Unknown Analyte POSITI VE (Abnor mal) Not Available [facility] [address], [place], [address], 01/30/2025 16:40:13 01/31/20 25 01/30/2025 urina lysis panel , auto Unknown Analyte Negati ve Not Available [facility] [address], [place], [address], 01/30/2025 16:40:13 01/31/20 25 01/30/2025 urina lysis panel , auto Unknown Analyte 30 mg/dL Not Available [facility] [address], [place], [address], 01/30/2025 16:40:13 01/31/20 25 01/30/2025 urina lysis panel , auto Unknown Analyte Negati ve Not Available [facility] [address], [place], [address], 01/30/2025 16:40:13 01/31/20 25 01/30/2025 urina lysis panel , auto Unknown Analyte Normal Not Available [facility] [address], [place], [address], 01/30/2025 16:40:13 01/31/20 25 01/30/2025 urina lysis panel , auto Unknown Analyte Normal Not Available [facility] [address], [place], [address], 01/30/2025 16:40:13 01/31/20 25 01/30/2025 urina lysis panel , auto Unknown Analyte 15 mg/dL Not Available [facility] [address], [place], [address], 01/30/2025 16:40:13 01/31/20 25 01/30/2025 urina lysis panel , auto Unknown Analyte Negati ve Not Available [facility] [address], [place], [address], 01/30/2025 16:40:13 01/31/20 25 01/30/2025 urina lysis panel , auto Unknown Analyte Normal Not Available [facility] [address], [place], [address], 01/30/2025 16:40:13 01/31/20 25 01/30/2025 urina lysis panel , auto Unknown Analyte Normal Not Available [facility] [address], [place], [address], 01/30/2025 16:40:13 01/31/20 25 01/30/2025 urina lysis panel , auto Unknown Analyte Negati ve Not Available [facility] [address], [place], [address], 01/30/2025 16:40:13 01/31/20 25 01/30/2025 urina lysis panel , auto Unknown Analyte Negati ve Not Available [facility] [address], [place], [address], 01/30/2025 16:40:13 01/31/20 25 01/30/2025 urina lysis panel , auto Unknown Analyte 50 Paras/uL Not Available [facility] [address], [place], [address], 01/30/2025 16:40:13 01/31/20 25 01/30/2025 urina lysis panel , auto Unknown Analyte Negati ve Not Available [facility] [address] [facility] [address], [place], [address], 01/30/2025 16:40:13 Result Notes None recorded. Problems No Known Problems Procedures Surgical History Date Name Laterality Status Provider Name and Address Organization Details Recorded Time Post Void Residual; Ultrasound completed Johana Hamilton [facility] 01/30/2025 16:50:51 Imaging Results None recorded. Procedure [...] and Address Organization Details Last Updated DateTime 01/30/2025 172.72 cm 28.1 kg/m2 24547.59 [facility] 01/30/2025 16:51:13 Social History Question Answer Notes LastModified by Organizat ion Details LastModified Time Tobacco Smoking Status Former [facility]22 16:38:14 What Was The Date Of Your Most Recent Tobacco Screening? 01/30/2025 [email or web address] Information not available 01/30/2025 What Is Your Relationship Status? [email or web address] Information not available 05/25/2022 Sex: Unknown Functional Status Question Answer Note LastModified by Organization D etails LastModified Time What is your level of alcohol consumption? None [email or web address] Information not available 05/25/2022 Mental Status None recorded. Family History Relationship Description Onset Age of this Age Resolved Age Notes LastModified by Organization Details LastModified Time Father No current problems or disability [email or web address] Not available 05/25 16:37:56 Mother No current problems or disability [email or web address] Not available 05/25 16:37:56 Medical History Condition Response Hypertension Y Past Encounters Encounter ID Performer Location Encounter Start Date Encounter Closed Date Diagnosis/Indication Diagnosis SNOMED-CT Code Diagnosis ICD10 Code Diagnosis Note [id number] ARTURO LOZANO MD [facility] [address] [place] [address] 01/30/2025 16:39:45 02/05/2025 12:51:50 Acute urinary tract infection 880599268 N39.0 Benign pro static hyperplasia with outflow obstruction 485278396 N40.1 N13.8 Much improved following greenlight laser vaporizati on of the prostate. Health Concerns Section Related Observation LastModified by Organization Detai ls LastModified Time None Recorded Concern Status LastModified by Organization Details LastModified Time None Recorded Payers Encounter Date Sequence Insurance Name Policy Number Policy Blank Covered Member ID Blank Member ID Guarantor Name 01/30/2025 1 [place] [id number] Isaak Mahmood Jr [id number] Isaak Mahmood Notes Date Note Type Note Provider Name and Address Organization Details Recorded Time 01/30/2025 text/html Patient was last seen 2 years ago following greenlight laser vaporization of the prostate 6 months earlier. He has had some recurrence of frequency and urgency to the point requiring a depends. He is compliant postvoid residual today was 20 mL but his urine today is nitrite positive with moderate leukocytes and trace of blood. I suggest we culture his urine and treat him based upon the culture results. We discussed that his UTI very likely is contributing to his incontinence and frequency. ARTURO LOZANO MD [address] [facility] [place], [address], [facility] 02/03/2025 12:58:18
--- OUTSIDE RECORDS SUMMARY | 2025-02-22 18:19 | XMS_ITS | Data Portability ---
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 Plan of Treatment Reminders Order Date Submit Date Provider Last Modified By Organization Details Last Modified Time Details Appointments RECHECK 2024 01:30P M ARTURO LOZANO MD Not available Not available Not available Lab urinalysi s panel, auto [email or web address] [facility], [address], [place] [address], , [phone], 02/15/2025 08:39:47 urinalysi s panel, auto [address] [facility], [address], [place] [address], , [address], 01/30/2025 17:25:29 culture, urine 2024 025 [facility], [address] [facility], , [address], 01/31/2025 10:46:18 urinalysi s panel, auto [address] [facility], [address], [place] [address], , [address], 10/26/2022 13:24:08 urinalysi s panel, auto 2022 023 [facility], [address], [place] [address], , [address], 08/04/2022 14:00:05 Referral None recorded. Procedures None recorded. Surgeries None recorded. Imaging None recorded. Medication Orders Cipro 250 mg tablet 2024 025 [facility] 591, [address], [address], 02/03/2025 12:57:41 Bactrim DS 800 mg-160 mg tablet 2022 023 [email or web address] [facility]91, [address], [address], 10/26/2022 12:55:08 Patient TargetsNo targets recorded. Patient InstructionsNo instructions recorded. Reason for Referral None Reported. Results Created Date Observation Date Name Description Value Unit Range Abnormal Flag Note LastModifiedBy Organization Detail LastModifiedTime 08/04/1908/04/2022 urina lysis panel , auto Unknown Analyte Clean Catch Not Available [facility] [address] [place] [address], , [address], 08/04/2022 13:30:44 08/04/19 23 08/04/2022 urina lysis panel , auto Unknown Analyte Yellow Not Available [facility] [address] [place] [address], , [address], 08/04/2022 13:30:44 08/04/19 23 08/04/2022 urina lysis panel , auto Unknown Analyte Clear Not Available [facility] [address] [place] [address], [address], 08/04/2022 13:30:44 08/04/19 23 08/04/2022 urina lysis panel , auto Unknown Analyte 1.010 Not Available [facility] [address] [place] [address], , [address], 08/04/2022 13:30:44 08/04/19 23 08/04/2022 urina lysis panel , auto Unknown Analyte 7.0 Not Available [facility] [address] [place] [address], , [address], 08/04/2022 13:30:44 08/04/19 23 08/04/2022 urina lysis panel , auto Unknown Analyte 75 Karin/ul (+) Not Available [facility] [address] [place] [address], , [address], 08/04/2022 13:30:44 08/04/19 23 08/04/2022 urina lysis panel , auto Unknown Analyte Negati ve Not Available [facility] [address] [place] [address], , [address], 08/04/2022 13:30:44 08/04/19 23 08/04/2022 urina lysis panel , auto Unknown Analyte Negati ve Not Available [facility] [address] [place] [address], , [address], 08/04/2022 13:30:44 08/04/19 23 08/04/2022 urina lysis panel , auto Unknown Analyte Normal Not Available [facility] [address] [place] [address], , [address], 08/04/2022 13:30:44 08/04/19 23 08/04/2022 urina lysis panel , auto Unknown Analyte Negati ve Not Available [facility] [address] [place] [address], , [address], 08/04/2022 13:30:44 08/04/19 23 08/04/2022 urina lysis panel , auto Unknown Analyte 4 mg/dl Not Available [facility] [address] [place] [address], , [address], 08/04/2022 13:30:44 08/04/19 23 08/04/2022 urina lysis panel , auto Unknown Analyte Negati ve Not Available [facility] [address] [place] [address], , [address], 08/04/2022 13:30:44 08/04/19 23 08/04/2022 urina lysis panel , auto Unknown Analyte Negati ve Not Available [facility] [address] [place] [address], , [address], 08/04/2022 13:30:44 10/27/19 23 10/26/2022 urina lysis panel , auto Unknown Analyte Clean Catch Not Available [facility] [address] [place] [address], , [address], 10/26/2022 12:55:59 10/27/1910/26/2022 urina lysis panel , auto Unknown Analyte Yellow Not Available [facility] [address] [place] [address], , [address], 10/26/2022 12:55:59 10/27/19 23 10/26/2022 urina lysis panel , auto Unknown Analyte Clear Not Available [facility] [address] [place] [address], , [address], 10/26/2022 12:55:59 10/27/19 23 10/26/2022 urina lysis panel , auto Unknown Analyte 1.020 Not Available [facility] [address] [place] [address], , [address], 10/26/2022 12:55:59 10/27/19 23 10/26/2022 urina lysis panel , auto Unknown Analyte 5.0 Not Available [facility] [address] [place] [address], , [address], 10/26/2022 12:55:59 10/27/19 23 10/26/2022 urina lysis panel , auto Unknown Analyte 500 Karin/ul (++) Not Available [facility] [address] [place] [address], , [address], 10/26/2022 12:55:59 10/27/19 23 10/26/2022 urina lysis panel , auto Unknown Analyte Negati ve Not Available [facility] [address] [place] [address], , [address], 10/26/2022 12:55:59 10/27/19 23 10/26/2022 urina lysis panel , auto Unknown Analyte Trace Not Available [facility] [address] [place] [address], , [address], 10/26/2022 12:55:59 10/27/19 23 10/26/2022 urina lysis panel , auto Unknown Analyte Normal Not Available [facility] [address] [place] [address], , [address], 10/26/2022 12:55:59 10/27/19 23 10/26/2022 urina lysis panel , auto Unknown Analyte Negati ve Not Available [facility] [address] [facility] [place] [address], , [address], 10/26/2022 12:55:59 10/27/19 23 10/26/2022 urina lysis panel , auto Unknown Analyte Normal Not Available [facility] [address] [facility] [place] [address], , [address], 10/26/2022 12:55:59 10/27/19 23 10/26/2022 urina lysis panel , auto Unknown Analyte Negati ve Not Available [facility] [address] [facility] [place] [address], , [address], 10/26/2022 12:55:59 10/27/19 23 10/26/2022 urina lysis panel , auto Unknown Analyte Negati ve Not Available [facility] [address] [facility] [place] [address], , [address], 10/26/2022 12:55:59 01/31/20 25 01/30/2025 URINE CULTU RE klebsiella oxytoca Organi sm: Klebsi dorothea oxytoc a Not Available [facility] [facility], , [address], 02/01/2025 15:57:06 01/31/20 25 02/01/2025 URINE CULTU RE urine culture abnormal ISOLA TE #1 COLON Y COUNT : > 100,0 00 CFU/M L Proba ble Gram Negat preethi Bacil vonda. ID and sensi tivit y in progr ess. See Tyrone te Resul t(s) Below Klebs iella oxyto ca Not Available [facility] [address] [place] [address], [address], 02/01/2025 15:57:06 01/31/20 25 02/01/2025 URINE CULTU RE amox/K clav'ate(C) <=8/4 ug/mL susceptib le Not Available [facility] [address] [place] [address], [address], 02/01/2025 15:57:06 01/31/20 25 02/01/2025 URINE CULTU RE cefazolin 8 ug/mL susceptib le Not Available [facility] [address] [place] [address], [address], 02/01/2025 15:57:06 01/31/20 25 02/01/2025 URINE CULTU RE ceftazidime <=1 ug/mL susceptib le Not Available [facility] [address] [place] [address], [address], 02/01/2025 15:57:06 01/31/20 25 02/01/2025 URINE CULTU RE ceftriaxone <=1 ug/mL susceptib le Not Available [facility] [address] [place] [address], [address], 02/01/2025 15:57:06 01/31/20 25 02/01/2025 URINE CULTU RE cefuroxime <=4 ug/mL susceptib le Not Available [facility] [address] [place] [address], [address], 02/01/2025 15:57:06 01/31/20 25 02/01/2025 URINE CULTU RE ciprofloxaci n <=0.25 ug/mL susceptib le Not Available [facility] [address] [place] [address], [address], 02/01/2025 15:57:06 01/31/20 25 02/01/2025 URINE CULTU RE gentamicin <=4 ug/mL susceptib le Not Available [facility] [address] [place] [address], [address], 02/01/2025 15:57:06 01/31/20 25 02/01/2025 URINE CULTU RE imipenem <=1 ug/mL susceptib le Not Available [facility] [address] [place] [address], [address], 02/01/2025 15:57:06 01/31/20 25 02/01/2025 URINE CULTU RE levofloxacin <=0.5 ug/mL susceptib le Not Available [facility] [address] [place] [address], [address], 02/01/2025 15:57:06 01/31/20 25 02/01/2025 URINE CULTU RE nitrofuranto in <=32 ug/mL susceptib le Not Available [facility] [address] [place] [address], [address], 02/01/2025 15:57:06 01/31/20 25 02/01/2025 URINE CULTU RE piperacillin /rodri <=16 ug/mL susceptib le Not Available [facility] [address] [place] [address], [address], 02/01/2025 15:57:06 01/31/20 25 02/01/2025 URINE CULTU RE tetracycline <=4 ug/mL susceptib le Not Available [facility] [address] [place] [address], [address], 02/01/2025 15:57:06 01/31/20 25 02/01/2025 URINE CULTU RE tobramycin <=2 ug/mL susceptib le Not Available [facility] [address] [place] [address], [address], 02/01/2025 15:57:06 01/31/20 25 02/01/2025 URINE CULTU RE trimeth/sulf a <=2/38 ug/mL susceptib le Not Available [facility] [address] [facility], , [address], 02/01/2025 15:57:06 01/31/20 25 01/30/2025 urina lysis panel , auto Unknown Analyte Clean Catch Not Available [facility] [address] [place] [address], , [address], 01/30/2025 16:40:13 01/31/20 25 01/30/2025 urina lysis panel , auto Unknown Analyte Yellow Not Available [facility] [address] [place] [address], , [address], 01/30/2025 16:40:13 01/31/20 25 01/30/2025 urina lysis panel , auto Unknown Analyte Cloudy Not Available [facility] [address] [place] [address], , [address], 01/30/2025 16:40:13 01/31/20 25 01/30/2025 urina lysis panel , auto Unknown Analyte 1.015 Not Available [facility] [address] [place] [address], , [address], 01/30/2025 16:40:13 01/31/20 25 01/30/2025 urina lysis panel , auto Unknown Analyte 1.003 - 1.030 Not Available [facility] [address] [place] [address], , [address], 01/30/2025 16:40:13 01/31/20 25 01/30/2025 urina lysis panel , auto Unknown Analyte 5.0 Not Available [facility] [address] [place] [address], , [address], 01/30/2025 16:40:13 01/31/20 25 01/30/2025 urina lysis panel , auto Unknown Analyte 5.0 - 8.0 Not Available [facility] [address] [place] [address], , [address], 01/30/2025 16:40:13 01/31/20 25 01/30/2025 urina lysis panel , auto Unknown Analyte 500 Karin/uL Not Available [facility] [address] [place] [address], , [address], 01/30/2025 16:40:13 01/31/20 25 01/30/2025 urina lysis panel , auto Unknown Analyte Negati ve Not Available [facility] [address] [place] [address], , [address], 01/30/2025 16:40:13 01/31/20 25 01/30/2025 urina lysis panel , auto Unknown Analyte POSITI VE (Abnor mal) Not Available [facility] [address] [place] [address], , [address], 01/30/2025 16:40:13 01/31/20 25 01/30/2025 urina lysis panel , auto Unknown Analyte Negati ve Not Available [facility] [address] [place] [address], , [address], 01/30/2025 16:40:13 01/31/20 25 01/30/2025 urina lysis panel , auto Unknown Analyte 30 mg/dL Not Available [facility] [address] [place] [address], , [address], 01/30/2025 16:40:13 01/31/20 25 01/30/2025 urina lysis panel , auto Unknown Analyte Negati ve Not Available [facility] [address] [place] [address], , [address], 01/30/2025 16:40:13 01/31/20 25 01/30/2025 urina lysis panel , auto Unknown Analyte Normal Not Available [facility] [address] [place] [address], , [address], 01/30/2025 16:40:13 01/31/20 25 01/30/2025 urina lysis panel , auto Unknown Analyte Normal Not Available [facility] [address] [place] [address], , [address], 01/30/2025 16:40:13 01/31/20 25 01/30/2025 urina lysis panel , auto Unknown Analyte 15 mg/dL Not Available [facility] [address] [place] [address], , [address], 01/30/2025 16:40:13 01/31/20 25 01/30/2025 urina lysis panel , auto Unknown Analyte Negati ve Not Available [facility] [address] [place] [address], , [address], 01/30/2025 16:40:13 01/31/20 25 01/30/2025 urina lysis panel , auto Unknown Analyte Normal Not Available [facility] [address] [place] [address], , [address], 01/30/2025 16:40:13 01/31/20 25 01/30/2025 urina lysis panel , auto Unknown Analyte Normal Not Available [facility] [address] [place] [address], , [address], 01/30/2025 16:40:13 01/31/20 25 01/30/2025 urina lysis panel , auto Unknown Analyte Negati ve Not Available [facility] [address] [place] [address], , [address], 01/30/2025 16:40:13 01/31/20 25 01/30/2025 urina lysis panel , auto Unknown Analyte Negati ve Not Available [facility] [address] [place] [address], , [address], 01/30/2025 16:40:13 01/31/20 25 01/30/2025 urina lysis panel , auto Unknown Analyte 50 Paras/uL Not Available [facility] [address] [place] [address], , [address], 01/30/2025 16:40:13 01/31/20 25 01/30/2025 urina lysis panel , auto Unknown Analyte Negati ve Not Available [facility] [address] [place] [address], , [address], 01/30/2025 16:40:13 02/14/20 25 02/13/2025 urina lysis panel , auto Unknown Analyte Clean Catch Not Available [facility] [address] [place] [address], , [address], 02/13/2025 15:30:44 02/14/20 25 02/13/2025 urina lysis panel , auto Unknown Analyte Yellow Not Available [facility] [address] [place] [address], , [address], 02/13/2025 15:30:44 02/14/20 25 02/13/2025 urina lysis panel , auto Unknown Analyte Clear Not Available [facility] [address] [place] [address], , [address], 02/13/2025 15:30:44 02/14/20 25 02/13/2025 urina lysis panel , auto Unknown Analyte 1.020 Not Available [facility] [address] [place] [address], , [address], 02/13/2025 15:30:44 02/14/20 25 02/13/2025 urina lysis panel , auto Unknown Analyte 1.003 - 1.030 Not Available [facility] [address] [place] [address], , [address], 02/13/2025 15:30:44 02/14/20 25 02/13/2025 urina lysis panel , auto Unknown Analyte 5.0 Not Available [facility] [address] [place] [address], , [address], 02/13/2025 15:30:44 02/14/20 25 02/13/2025 urina lysis panel , auto Unknown Analyte 5.0 - 8.0 Not Available [facility] [address] [place] [address], , [address], 02/13/2025 15:30:44 02/14/20 25 02/13/2025 urina lysis panel , auto Unknown Analyte 25 Karin/uL Not Available [facility] [address] [place] [address], , [address], 02/13/2025 15:30:44 02/14/20 25 02/13/2025 urina lysis panel , auto Unknown Analyte Negati ve Not Available [facility] [address] [place] [address], , [address], 02/13/2025 15:30:44 02/14/20 25 02/13/2025 urina lysis panel , auto Unknown Analyte Negati ve Not Available [facility] [address] [address], , [address], 02/13/2025 15:30:44 02/14/20 25 02/13/2025 urina lysis panel , auto Unknown Analyte Negati ve Not Available [facility] [address] [address], , [address], 02/13/2025 15:30:44 02/14/20 25 02/13/2025 urina lysis panel , auto Unknown Analyte Trace Not Available [facility] [address] [address], , [address], 02/13/2025 15:30:44 02/14/20 25 02/13/2025 urina lysis panel , auto Unknown Analyte Negati ve Not Available [facility] [address] [address], , [address], 02/13/2025 15:30:44 02/14/20 25 02/13/2025 urina lysis panel , auto Unknown Analyte Normal Not Available [facility] [address] [place] [address], , [address], 02/13/2025 15:30:44 02/14/20 25 02/13/2025 urina lysis panel , auto Unknown Analyte Normal Not Available [facility] [address] [address], , [address], 02/13/2025 15:30:44 02/14/20 25 02/13/2025 urina lysis panel , auto Unknown Analyte Negati ve Not Available [facility] [address] [address], , [address], 02/13/2025 15:30:44 02/14/20 25 02/13/2025 urina lysis panel , auto Unknown Analyte Negati ve Not Available [facility] [address] [address], , [address], 02/13/2025 15:30:44 02/14/20 25 02/13/2025 urina lysis panel , auto Unknown Analyte Normal Not Available [facility] [address] [address], , [address], 02/13/2025 15:30:44 02/14/20 25 02/13/2025 urina lysis panel , auto Unknown Analyte Normal Not Available [facility] [address] [address], , [address], 02/13/2025 15:30:44 02/14/20 25 02/13/2025 urina lysis panel , auto Unknown Analyte Negati ve Not Available [facility] [address] [place] [address] [address], , [address], 02/13/2025 15:30:44 02/14/20 25 02/13/2025 urina lysis panel , auto Unknown Analyte Negati ve Not Available [facility] [address] [place] [address] [address], , [address], 02/13/2025 15:30:44 02/14/20 25 02/13/2025 urina lysis panel , auto Unknown Analyte 50 Paras/uL Not Available [facility] [address], [address], 02/13/2025 15:30:44 02/14/20 25 02/13/2025 urina lysis panel , auto Unknown Analyte Negati ve Not Available [facility] [address], , [address], 02/13/2025 15:30:44 Result Notes None recorded. Problems No Known Problems Procedures Surgical History Date Name Laterality Status Provider Name and Address Organization Details Recorded Time Post Void Residual; Ultrasound completed Johana Hamilton [facility] 01/30/2025 16:50:51 Imaging Results None recorded. Procedure [...] Not Available Vitals Date Recorded Body height Provider Name an d Address Organization Details Last Updated DateTime 08/04/2022 175.26 cm [facility] 13:30:31 Date Recorded Body height Provider Name an d Address Organization Details Last Updated DateTime 10/26/2022 175.26 cm [facility] 12:51:55 Date Recorded Body height Body mass index (BMI) Body weight Provider Name and Address Organization Details Last Updated DateTime 01/30/2025 172.72 cm 28.1 kg/m2 80430.59 g Johana Hamilton [facility] 01/30/2025 16:51:13 Date Recorded Body height Body mass index (BMI) Body weight Provider Name and Address Organization Details Last Updated DateTime 02/13/2025 172.72 cm 28.1 kg/m2 48238.59 g Pili Jordan [facility] 02/13/2025 14:30:11 Date Recorded Body height Body mass index (BMI) Body weight Provider Name and Address Organization Details Last Updated DateTime 07/05/2022 175.26 cm 28.1 kg/m2 07156.55 g Cristela Reid [facility] 07/05/2022 11:01:31 Social History Question Answer Notes LastModified by Organizat ion Details LastModified Time Tobacco Smoking Status Former Smoker quit over 40 years [facility] 16:38:14 What Was The Date Of Your Most Recent Tobacco Screening? 01/30/2025 [email or web address] Information not available 01/30/2025 What Is Your Relationship Status? [email or web address] Information not available 05/25/2022 Sex: Unknown Functional Status Question Answer Note LastModified by Organization D etails LastModified Time What is your level of alcohol consumption? None Information not available 05/25/2022 Mental Status None recorded. Family History Relationship Description Onset Age of this Age Resolved Age Notes LastModified by Organization Details LastModified Time Father No current problems or disability [email or web address] Not available 05/25 16:37:56 Mother No current problems or disability [email or web address] Not available 05/25 16:37:56 Medical History Condition Response Hypertension Y Past Encounters Encounter ID Performer Location Encounter Start Date Encounter Closed Date Diagnosis/Indication Diagnosis SNOMED-CT Code Diagnosis ICD10 Code Diagnosis Note [id number] ARTURO LOZANO MD [facility] [address] [place] [address] 05/25/2022 15:27:07 05/27/2022 12:47:05 Benign prostatic hyperplasia with outflow obstruction 694093077 N40.1 we discussed potential interventi on. We discussed the greenlight laser vaporizati on of the prostate would be the most probable procedure to give him significan t improvemen t of symptoms. He does have a very large prostate and therefore a lesser interventi on may not be as successful . We discussed recovery and expectatio ns. He understand s and wished to proceed with greenlight laser vaporizati on of prostate Prostate s pecific antigen above reference range [id number] R97.20 likely benign [id number] ARTURO LOZANO MD [facility] [address] [place] [address] 07/05/2022 09:38:35 07/05/2022 11:39:32 Benign prostatic hyperplasia with outflow obstruction 678929920 N40.1 Voiding trial today follow-up 3 weeks [id number] ARUTRO LOZANO MD [facility] [email or web address] [place] [address] 08/04/2022 13:24:01 08/04/2022 13:59:50 Benign prostatic hyperplasia with outflow obstruction [id number] N40.1 Much improved following greenlight laser vaporizati on of the prostate. I encouraged him to discontinu e tamsulosin . I would not expect that this would be contributi ng to his symptoms but at this point likely it is providing very little benefit. Follow-up 2 months Furuncle [id number] L02.9 2 [id number] ARTURO LOZANO MD [facility] [address] [place] [address] 10/26/2022 12:44:03 10/26/2022 13:26:01 Benign prostatic hyperplasia with outflow obstruction [id number] N40.1 Much improved following greenlight laser vaporizati on of the prostate. Follow-up 1 year [id number] ARTURO LOZANO MD [facility] [address] [place] [address] 01/30/2025 16:39:45 02/05/2025 12:51:50 Acute urinary tract infection 046620455 N39.0 Benign pro static hyperplasia with outflow obstruction 148820003 N40.1 N13.8 Much improved following greenlight laser vaporizati on of the prostate. [id number] ARTURO LOZANO MD [facility] [address] [place] [address] 02/13/2025 14:07:48 02/13/2025 15:50:34 Benign prostatic hyperplasia with outflow obstruction [id number] N40.1 N13.8 Much improved following greenlight laser vaporizati on of the prostate. Acute cystitis [id number] N30.00 He will complete the Cipro and follow-up in 1 month Health Concerns Section Related Observation LastModified by Organization Detai ls LastModified Time None Recorded Concern Status LastModified by Organization Details LastModified Time None Recorded Advance Directives Directive None Recorded Payers Insurance Date Sequence Insurance Name Policy Number Policy Blank Covered Member ID Blank Member ID Guarantor Name 02/16/2025 1 [place] [id number] Isaak Mahmood Jr [id number] Isaak Timoteo 01/30/2025 1 [employer] (MEDICARE REPLACEMENT/ ADVANTAGE - PPO) Isaak P Timoteo [id number] Isaak Timoteo Notes Date Note Type Note Provider Name and Address Organization Details Recorded Time 07/05/2022 text/html Patient is here for Cath removal after greenlight laser vaporization of prostate 4 days ago. He has no complaints. Catheter was removed without difficulty. We discussed again expectations. These antibiotics ARTURO LOZANO MD [facility] [address], [address], [facility] 07/11/2022 16:34:55 08/04/2022 text/html Patient is here with his daughter and granddaughter 2 months following greenlight laser vaporization of the prostate. He is voiding well. He typically can sleep through the night. He is having no incontinence. 2 days after his catheter removal he developed some severe weakness was evaluated in the emergency room at his local hospital. All tests were negative. He still has not regained his strength completely and is walking with a cane. He is urine today is unremarkable. We discussed stopping his tamsulosin. I also recommend that considering that his symptoms are lingering that he see his PCP for further evaluation of his persistent for fatigue. He mentioned having a infected hair follicle on his lower abdomen. I inspected this and it does look as though he has a folliculitis. ARTURO LOZANO MD [facility] [place], [address], [facility] 08/04/2022 14:00:39 10/26/2022 text/html Patient is here in follow-up of greenlight laser vaporization of the prostate back in July. He continues to void well typically having nocturia anywhere from 0-1 time per night. He has regained his strength and feels much improved. His urine specimen today is unremarkable. We will move him to yearly follow-up he remains very active ARTURO LOZANO MD [facility] [place], [address], [facility] 10/26/2022 13:24:28 01/30/2025 text/html Patient was last seen 2 [...] his incontinence and frequency. ARTURO LOZANO MD [address] [place] [address] [place], [address], [facility] 02/03/2025 12:58:18 02/13/2025 text/html + Patient is here in [...] about 2-1/2 years ago. ARTURO LOZANO MD [address] [place] [address] [place], [address], [facility] 02/15/2025 08:40:34
--- NOTE | 2025-02-22 18:33 | CT_ITS ---
PROCEDURE INFORMATION: Exam: CTA Abdomen and Pelvis With Contrast Exam date and time: 02/22/2025 7:20 PM Age: 89 years old Clinical indication: Other: Acute abdominal pain TECHNIQUE: Imaging protocol: Computed tomographic angiography of the abdomen and pelvis with contrast. Exam focused on the arteries. 3D rendering (Not supervised by radiologist): MIP and/or 3D reconstructed images were created by the technologist. Radiation optimization: All CT scans at this facility use at least one of these dose optimization techniques: automated exposure control; mA and/or kV adjustment per patient size (includes targeted exams where dose is matched to clinical indication); or iterative reconstruction. Contrast material: ISO 370; Contrast volume: 80 ml; Contrast route: INTRAVENOUS (IV); COMPARISON: CT ABDOMEN PELVIS W CON 07/13/2022 12:27 PM FINDINGS: Limitations: Motion artifact degrades image quality and limits the sensitivity of this examination. Aorta: No aortic aneurysm. No aortic dissection. Celiac trunk and mesenteric arteries: No occlusion or significant stenosis. Renal arteries: No occlusion or significant stenosis. Right iliac arteries: No occlusion or significant stenosis. Left iliac arteries: No occlusion or significant stenosis. Liver: No mass. Gallbladder and biliary ducts: Unremarkable. No calcified stones. No ductal dilation. Pancreas: Unremarkable. No mass. No ductal dilation. Spleen: Unremarkable. No splenomegaly. Adrenal glands: Unremarkable. No mass. Kidneys and ureters: Unremarkable. No solid mass. No hydronephrosis. Stomach and bowel: Unremarkable. No obstruction. No mucosal thickening. Appendix: No evidence of appendicitis. Intraperitoneal space: Unremarkable. No free air. No significant fluid collection. Lymph nodes: Unremarkable. No enlarged lymph nodes. Urinary bladder: The urinary bladder is moderately distended. There is asymmetric bladder wall thickening in the posterior and superior aspect of the urinary bladder. Reproductive: The prostate measures 6.3 cm transverse. Bones/joints: Degenerative changes in the spine. Soft tissues: Unremarkable. Other findings: Moderate calcification of the aorta and iliac arteries. IMPRESSION: 1. The urinary bladder is moderately distended. There is asymmetric bladder wall thickening in the posterior and superior aspect of the urinary bladder. Suspicious for chronic bladder outlet obstruction. Neoplasm could have a similar appearance. Urology consultation recommended. 2. Enlarged prostate. 3. Moderate atherosclerotic vascular disease. There is no aneurysm or dissection.
[2025-02-22] MEDS: ACETAMINOPHEN 1,000MG/100ML VIAL 1000 MG IV (18:50)
[2025-02-22] MEDS: 0.9 % SODIUM CHLORIDE 1000ML 1,000 ML 999 ML IV (18:50)
[2025-02-22] MEDS: ONDANSETRON 4MG/2ML VIAL 4 MG IV (18:51)
[2025-02-22] MEDS: HYDROMORPHONE 2MG/ML SYRINGE 0.5 MG IV (18:51)
[2025-02-22 19:00] LABS: Hematocrit 42.8 % (42.0-52.0); Hemoglobin 15.4 g/dL (14.1-18.0); Immature Granulocytes % 0.4 %; Mean Corpuscular HGB Conc 36.0 g/dL (31.8-35.4); Mean Corpuscular Hemoglobin 30.5 pg (27.0-31.2); Mean Corpuscular Volume 84.8 fl (80-94); Nucleated Red Blood Cells % 0 %; Platelet Count 257 K/mm3 (142-424); Red Blood Count 5.05 M/mm3 (4.60-6.20); Red Cell Distribution Width-SD 36.6 fL; White Blood Count 13.1 K/mm3 (4.8-10.8)
[2025-02-22 19:09] LABS: Albumin Level 4.2 g/dl (3.5-5.0); Chloride 102 mmol/L (98-107); Potassium 3.7 mmoL/L (3.5-5.1); Sodium 131 mmol/L (136-145)
[2025-02-22 19:12] LABS: Alanine Aminotransferase 22 U/L (12-78); Albumin/Globulin Ratio 1.0 (1.1-1.8); Alkaline Phosphatase 122 U/L (38-126); Anion Gap 16.7 mEq/L (5-15); Aspartate Amino Transferase 33 U/L (17-59); Bilirubin,Total 1.4 mg/dl (0.2-1.3); Blood Urea Nitrogen 16 mg/dl (9-20); Carbon Dioxide 16 mmol/L (22.0-30.0); Creatinine Clearance Estimated 61 mL/min (50-200); Creatinine,Serum 1.00 mg/dl (0.66-1.25); Estimated Glomerular Filt Rate 71 ml/min (>60); GFR (African American) 85 ML/MIN (>60); Globulin 4.2 g/dL (1.3-3.2); Total Protein,Serum 8.4 g/dl (6.3-8.2)
[2025-02-22 19:13] LABS: Calcium 10.5 mg/dl (8.4-10.2); Glucose 112 mg/dl (74-100)
[2025-02-22] MEDS: IOPAMIDOL-370 (76%);100ML BOTTLE 80 ML IV ×2 (19:20→19:26)
[2025-02-22] MEDS: 0.9 % SODIUM CHLORIDE 50 ML VIAL IV ×2 (19:20→19:26)
[2025-02-22] MEDS: SODIUM CHLORIDE 0.9% 10ML SYR (RAD ONLY) 10 ML IV ×2 (19:20→19:26)
[2025-02-22 19:28] LABS: Procalcitonin 0.053 ng/mL (0.0-2.0); Troponin I < 0.01 ng/ml (0.00-0.034)
[2025-02-22 19:57] LABS: Microscopic, Urine URINE MICROSCOPIC (MICROSCOPIC)
[2025-02-22 20:05] LABS: Bilirubin,Urine Negative (Negative); Color,Urine YELLOW (Yellow); Glucose,Urine (UA) Negative (Negative); Ketones,Urine TRACE (Negative); Leukocyte Esterase,Urine Negative (Negative); PH,Urine 6.0 (5.0-8.5); Protein,Urine 2+ (Negative); Specific Gravity, Urine 1.020 (1.005-1.030); Urobilinogen,Urine 0.2 EU/dl (0.2)
[2025-02-22 20:15] LABS: Hepatitis C Ab Qual. W/ RFX NEGATIVE (Negative)
[2025-02-22] MEDS: LIDOCAINE 2% UROJET 10ML TP (20:17)
[2025-02-22 20:26] LABS: Bacteria,Urine 1+ /lpf
[2025-02-22] MEDS: SULFA/TRIMETHOPRIM 1 TABLET 1 EACH PO (20:44)
[2025-02-22 22:54] LABS: Reflex Lactic Add Lactic Reflex
== END 2025-02-22 22:05 | disposition home or self-care (01) ==
PROVIDERS: Physician Assistant; Emergency Provider Student in an Organized Health Care Education/Training Program; PCP Family Medicine
DX: R10.84 Generalized abdominal pain (principal); N32.0 Bladder-neck obstruction; N39.0 Urinary tract infection, site not specified; K59.02 Outlet dysfunction constipation; R00.0 Tachycardia, unspecified; E87.1 Hypo-osmolality and hyponatremia; I10 Essential (primary) hypertension
CPT/HCPCS: 74174; 80053; 81001; 83605; 84145; 84484; 85025; 86803; 87389; 96361; 96374; 96375; 99285; J0131; J1171; J2405; J7030; Q9967

== ENCOUNTER 2025-02-27 12:48 | Emergency (ER) | payer MEDICARE, SELFPAY ==
--- OUTSIDE RECORDS SUMMARY | 2025-02-27 12:56 | XMS_ITS ---
Author Organization Unknown Medications Date Medication Dosage DosageUnit StartDate StopDate StopReason Active DoseQuantity DoseUnit Dispense DispenseUnit Refills NdcCode DrugCode PharmacyId IsPrescription MappedMedication Srcstatus Custom 10/09 00:00 :00 Amoxicillin -Pot Clavulanate 875-125 MG Tablet 05/29/2024 00:00:00 0 14 Tablet 0 05929 227 534 P Not Taking 08/21 00:00 :00 Amoxicillin -Pot Clavulanate 875-125 MG Tablet 05/29/2024 00:00:00 1 14 Tablet 0 61383 227 534 P Refill 06/26 00:00 :00 Amoxicillin -Pot Clavulanate 875-125 MG Tablet 05/29/2024 00:00:00 0 14 Tablet 0 16196 227 534 P Not Taking 05/29 00:00 :00 Amoxicillin -Pot Clavulanate 875-125 MG Tablet 05/29/2024 00:00:00 1 14 Tablet 0 94829 227 534 P Start 11/06 00:00 :00 Nitrofurant oin Macrocrysta l 100 MG Capsule 11/07/2024 00:00:00 1 10 0 [id number] 4 501 P Start 10/09 00:00 :00 oxyBUTYnin Chloride 5 MG Tablet 10/09/2024 00:00:00 1 30 0 [id number] 3 800 P Start 10/09 00:00 :00 Promethazin e-DM 6.25-15 MG/5ML Syrup 08/14/2024 00:00:00 0 140 ML 0 [id number] 5 701 P Not Taking 08/14 00:00 :00 Promethazin e-DM 6.25-15 MG/5ML Syrup 08/14/2024 00:00:00 1 140 ML 0 [id number] 5 701 P Start 10/09 00:00 :00 Quinapril HCl 20 MG Tablet 1 90 Tablet 4 435 12472 209 Taking 06/26 00:00 :00 Quinapril HCl 20 MG Tablet 1 90 Tablet 4 435 09473 209 Taking 05/29 00:00 :00 Quinapril HCl 20 MG Tablet 1 90 Tablet 4 435 79836 209 Taking 05/16 00:00 :00 Quinapril HCl 20 MG Tablet 1 90 Tablet 4 435 01144 209 Taking 01/24 00:00 :00 Ramipril 2.5 MG Capsule 01/24/2025 00:00:00 1 90 Capsule 3 [id number] 501 P Refill 10/09 00:00 :00 Ramipril 2.5 MG Capsule 1 90 Capsule 3 [id number] 501 Taking 06/26 00:00 :00 Ramipril 2.5 MG Capsule 1 90 Capsule 3 [id number] 501 Taking 06/24 00:00 :00 Ramipril 2.5 MG Capsule 1 90 Capsule 3 [id number] 501 Start 06/24 00:00 :00 Ramipril 0 90 Capsule 4 [id number] 501 Stop 05/29 00:00 :00 Ramipril 2.5 MG Capsule 1 90 Capsule 3 [id number] 501 Taking 05/16 00:00 :00 Ramipril 2.5 MG Capsule 1 90 Capsule 3 [id number] 501 Taking 10/09 00:00 :00 Simvastatin 10 MG Tablet 1 90 Tablet 2 [id number] 203 Taking 06/26 00:00 :00 Simvastatin 10 MG Tablet 1 90 Tablet 2 [id number] 203 Taking 05/29 00:00 :00 Simvastatin 10 MG Tablet 1 90 Tablet 2 [id number] 203 Taking 05/16 00:00 :00 Simvastatin 10 MG Tablet 1 90 Tablet 2 [id number] 203 Taking 03/11 00:00 :00 Simvastatin 10 MG Tablet 1 90 Tablet 2 [id number] 203 Start 03/11 00:00 :00 Simvastatin 10 MG Tablet 0 90 Tablet 2 [id number] 203 Stop 10/09 00:00 :00 Tamsulosin HCl 0.4 MG Capsule 1 90 Capsule 1 [id number] 210 P Refill 10/09 00:00 :00 Tamsulosin HCl 0.4 MG Capsule 0 90 Capsule 1 [id number] 210 P Not Taking 08/21 00:00 :00 Tamsulosin HCl 0.4 MG Capsule 1 90 Capsule 1 [id number] 210 P Refill 06/26 00:00 :00 Tamsulosin HCl 0.4 MG Capsule 1 90 Capsule 1 [id number] 210 Taking 05/29 00:00 :00 Tamsulosin HCl 0.4 MG Capsule 1 90 Capsule 1 [id number] 210 Taking 05/16 00:00 :00 Tamsulosin HCl 0.4 MG Capsule 1 90 Capsule 1 [id number] 210 Taking 01/24 00:00 :00 Verapamil HCl ER 120 MG Tablet Extended Release 01/24/2025 00:00:00 1 90 Tablet 3 [id number] 001 P Refill 10/09 00:00 :00 Verapamil HCl ER 120 MG Tablet Extended Release 1 90 Tablet 3 [id number] 32 001 Taking 06/26 00:00 :00 Verapamil HCl ER 120 MG Tablet Extended Release 1 90 Tablet 3 [id number] 32 001 Taking 05/29 00:00 :00 Verapamil HCl ER 120 MG Tablet Extended Release 1 90 Tablet 3 [id number] 32 001 Taking 05/16 00:00 :00 Verapamil HCl ER 120 MG Tablet Extended Release 1 90 Tablet 3 [id number] 32 001 Taking 03/05 00:00 :00 Verapamil HCl ER 120 MG Tablet Extended Release 1 90 Tablet 3 [id number] 32 001 Start 03/05 00:00 :00 Verapamil HCl ER 120 MG Tablet Extended Release 0 90 Tablet 0 [id number] 32 001 Stop
--- NOTE | 2025-02-27 12:59 | ED_ITS ---
<Statement entered by Milagro Yoo DO - 02/27/25 15:04> I was consulted by the OTF, and we discussed the complexity of the problems being addressed. I approved the treatment and management plan for this patient's care in the emergency department, thus performing a substantive portion of the medical decision making. Milagro Yoo DO Discharge Plan Disposition Patient Disposition: Home, Self-Care Condition: Fair Prescriptions Prescriptions: New phenazopyridine [Pyridium] 200 mg tablet 200 mg PO Q8H PRN (Reason: pain) Qty: 30 0RF oxybutynin chloride 10 mg tablet extended release 24hr 10 mg PO DAILY Qty: 30 0RF No Action simvastatin 10 mg tablet 10 mg PO DAILY tamsulosin 0.4 MG capsule 0.4 mg PO HS quinapril 20 MG tablet 20 mg PO DAILY verapamil 120 MG capsule,ext rel. pellets 24 hr 120 mg PO DAILY cefdinir 300 mg capsule 300 mg PO BID 7 Days Qty: 14 0RF tamsulosin 0.4 mg capsule 0.4 mg PO DAILY Qty: 30 0RF sulfamethoxazole-trimethoprim [Bactrim DS] 800-160 mg tablet 1 tab PO BID 5 Days Qty: 10 0RF Referrals Follow up/Referrals: Cailin Rooney MD [Primary Care Provider, Medical] - See instructions Jim Martel MD [Referring, Urology] - See instructions Activity Restrictions/Add. Instructions Additional Instructions/Restrictions: I have been able to move up your urology appointment with Dr. Martel to March 04 at 3:30 PM on [facility]. I have provided the phone number for you. Please take the images provided you on disc with you. I have also prescribed a bladder spasm medication and a bladder irritant medication. Please take them as needed. If you have any persistent new or worsening signs or symptoms follow-up with your PCP return to the ER as needed. Clinical Impressions Clinical Impression: Bladder outlet obstruction, Constipation by outlet obstruction, Complicated urinary tract infection Instructions Patient Instructions: DI for Urinary Tract Infection (UTI), DI for Urinary Tract Infection in Children Print Language Print Language: Danish Discharge ED Provider: Milagro Yoo General Adult HPI General Chief complaint: Urogenital-Male Stated complaint: Pain in penis with catheter Time Seen by Provider: 02/27/25 12:58 History of Present Illness HPI narrative: Patient presents complaining of his Head catheter. I saw the patient on 02/23/2025 for acute abdominal pain. He was ultimately found to have acute urinary retention likely due to prostate and/or bladder cancer. I had great difficulty in placing his catheter trying an 1816 07 and ultimately an 8 Faroese catheter was able to be anchored. Patient reports that he is having penile pain some leaking around the bladder catheter and that his penis feels like [id number] . Patient has no fever chills hemoptysis hematochezia melena nausea vomit diarrhea. Patient reportedly had already established follow-up with a urologist and ultimately patient was discharged with catheter in place. He has not yet seen catheter however patient is not oriented and does not remember me or the fact that I personally placed his catheter. He seems confused to the reason for the catheter placement in the first place. Related Data Home Medications ?Medication ?Instructions ?Recorded ?Confirmed quinapril 20 mg tablet 20 mg PO DAILY Hypertension 11/29/20 04/12/22 tamsulosin 0.4 mg capsule 0.4 mg PO HS PROSTATE 04/12/22 verapamil 120 mg 24 hr 120 mg PO DAILY Hypertension 11/29/20 04/12/22 capsule,extended release simvastatin 10 mg tablet 10 mg PO DAILY Cholesterol 0 03/05/22 04/12/22 Previous Rx's ?Medication ?Instructions ?Recorded cefdinir 300 mg capsule 300 mg PO BID 7 days #14 cap s 06/26/24 tamsulosin 0.4 mg capsule 0.4 mg PO DAILY #30 caps sulfamethoxazole 800 1 tab PO BID 5 days #10 tabs 02/22/25 mg-trimethoprim 160 mg tablet (Bactrim DS) oxybutynin chloride 10 mg 10 mg PO DAILY #30 tabs 01/31 025 tablet,extended release 24 hr phenazopyridine 200 mg tablet 200 mg PO Q8H PRN pain # 30 tabs 02/27/25 (Pyridium) Allergies Allergy/AdvReac Type Severity Reaction Status Date / Time No Known Allergies Allergy Verified 06/26/24 12:16 [facility] Disclaimer: The information contained in this section may have been updated after the patient was seen, as this information can be updated by other users. Medical History High blood cholesterol High blood pressure Surgical History H/O hernia repair Family History Other Stroke Social History Smoking Status: Never smoker alcohol intake: never substance use type: denies use current occupational status: retired and other Travel in the last 8 weeks?: None household members: spouse and family housing: house Have you lived/traveled outside US in past 30 days?: No Contact w/someone who lives/traveled outside US past 30 days?: No Exposure to someone with infectious disease in past 14 days?: No Do you have a fever (greater than 100.4 F or 38 C)?: No Have you tested positive for COVID-19?: No Exposed to someone with COVID-19 in past 14 days?: No Do you have a sore throat?: No Do you have a cough?: No Do you have any weakness?: No Do you have any diarrhea?: No Are you experiencing any unusual bleeding?: No Do you have any muscle aches/pain?: No Do you have any abdominal pain?: No Are you experiencing loss of taste or smell?: No Other Medical History Have you received the Pneumonia Vaccine: Yes ROS Obtained: Yes Systems reviewed as appropriate & no additional complaints except as documented Physical Exam General General appearance: alert Respiratory Respiratory exam: Present normal lung sounds bilaterally Cardiovascular Cardiovascular exam: Present regular rate Neurological Exam Neurological exam: Present alert; Absent oriented X3 Medical Decision Making Medical Records Medical records reviewed: Yes I reviewed the patient's medical records. Screening: Per USPSTF and CDC recommendations, given the prevalence of disease in our region, it is our hospital?s policy to screen for HIV and viral Hepatitis for all patients aged 18 and over and those with ongoing risk factors. Billy Inquiry Pt receiving controlled substance: No Vital Signs: 02/27/25 13:07 Pulse Rate [Right] 77 Respiratory Rate 16 Blood Pressure [Right Arm] 172/82 H Blood Pressure Mean [Right Arm] 112 02 Sat by Pulse Oximetry 97 Oxygen Delivery Method Room Air Orders (Tests/Meds): ED MEDICATIONS Discontinued Medications Generic Name Dose Route Start Last Admin Trade Name Freq PRN Reason Stop Dose Admin Oxybutynin Chloride 5 mg 02/27/25 13:49 Oxybutynin 5mg Tab PO 02/27/25 13:50 ONCE ONE Phenazopyridine HCl 200 mg 02/27/25 13:49 Phenazopyridine 200mg Tablet PO 02/27/25 13:50 ONCE ONE Medical Decision Narrative: In summary patient is a 89-year-old gentleman who presents to the emergency department for evaluation of leaking Head catheter and catheter related pain. Patient is hemodynamically stable upon arrival, afebrile. Physical exam reveals a soft abdomen with no rebound or guarding or rigidity. Bowel sounds normal active. Head is draining appropriately with clear urine in the bag.. Differential diagnosis includes bladder spasm pain versus known bladder irritation secondary to a complicated urinary tract infection previously diagnosed and treated however patient has no red flags to suggest alternative diagnosis is so they were not pursued.. As mentioned in my previous note I had great difficulty entering the urethra at the meatus and ultimately was able to pass a 10 Faroese straight Head with a 5 cc balloon. It is expected that he will leak given the small size of the Head and the small size of the balloon however he is draining his bladder. It is also expected that he would have some bladder discomfort with the presence of the Head balloon. Unfortunately patient is not oriented and does not even remember seeing me or me placing personally his catheter. I then had an interactive discussion with the patient's granddaughter regarding patient presentation CHACKO and management and I explained that while I could take the Head catheter out if she wished would not be able to put it back in with great risk to his urethra which show I was not willing to do. I recommended leaving the Head catheter in place. I have offered him Pyridium and Ditropan to help with the symptomatic discomfort. I have also personally contacted the urologist Dr. Martel office in [place] and was able to move up his urology appointment from the th to the fourth at 3:30 PM. Given this patient is appropriate for discharge with prescription for Pyridium and Ditropan and the aforementioned urology follow-up. If he has any new or worsening signs or symptoms follow-up PCP return to the ER as needed. Critical Care Critical Care Time Critical Care Time: No
[2025-02-27 13:07] VITALS: BP 172/82; PULSE 77; RESP 16; O2SAT 97; BMI 25.0
--- NOTE | 2025-02-27 13:31 | PC.NURSE ---
PT noted to be yelling out hey . Upon entering room PT stated he wanted to turn the TV on.
--- NOTE | 2025-02-27 13:46 | PC.NURSE ---
Notified PT daughters phone number. [phone]
[2025-02-27] MEDS: PHENAZOPYRIDINE 200MG TABLET 200 MG PO (14:00)
--- NOTE | 2025-02-27 14:13 | PC.NURSE ---
Shorts provided to PT for pants being wet.
[2025-02-27 14:19] VITALS: BP 123/72; PULSE 74; RESP 16; TEMP 37.2; O2SAT 97
[2025-02-27 14:29] VITALS: BP 123/72; PULSE 74; RESP 16; TEMP 37.2; O2SAT 97
== END 2025-02-27 15:21 | disposition home or self-care (01) ==
PROVIDERS: Emergency Provider Emergency Medicine; PCP Family Medicine
DX: N39.0 Urinary tract infection, site not specified (principal); K59.02 Outlet dysfunction constipation; I10 Essential (primary) hypertension; E78.00 Pure hypercholesterolemia, unspecified
CPT/HCPCS: 99283

== ENCOUNTER 2025-02-27 18:24 | Emergency (ER) | payer MEDICARE, SELFPAY ==
[2025-02-27] VITALS (7 sets, daily range): BP systolic 98–150; BP diastolic 71–86; PULSE 69–88; RESP 18–20; TEMP 36.7–37.5; O2SAT 94–97; BMI 24.3
--- NOTE | 2025-02-27 18:28 | HMH.EDGENADL ---
Discharge Plan Disposition Patient Disposition: Xfer Short-Term Hosp Prescriptions Prescriptions: No Action simvastatin 10 mg tablet 10 mg PO DAILY tamsulosin 0.4 MG capsule 0.4 mg PO HS quinapril 20 MG tablet 20 mg PO DAILY verapamil 120 MG capsule,ext rel. pellets 24 hr 120 mg PO DAILY cefdinir 300 mg capsule 300 mg PO BID 7 Days Qty: 14 0RF tamsulosin 0.4 mg capsule 0.4 mg PO DAILY Qty: 30 0RF sulfamethoxazole-trimethoprim [Bactrim DS] 800-160 mg tablet 1 tab PO BID 5 Days Qty: 10 0RF phenazopyridine [Pyridium] 200 mg tablet 200 mg PO Q8H PRN (Reason: pain) Qty: 30 0RF oxybutynin chloride 10 mg tablet extended release 24hr 10 mg PO DAILY Qty: 30 0RF Referrals Follow up/Referrals: Cailin Rooney MD [Primary Care Provider, Medical] - See instructions Activity Restrictions/Add. Instructions Additional Instructions/Restrictions: To [facility] of Gustabo Portillo PA-C Clinical Impressions Clinical Impression: Bladder outlet obstruction, Acute confusion Stand Alone Forms Stand Alone Forms: Transfer Record - ED Print Language Print Language: German Discharge ED Provider: Ted Collier General Adult HPI <ASHANTI Vickers - Last Filed: 02/27/25 20:41> General Chief complaint: Recheck/Abnormal Lab/Rx Stated complaint: AMS Time Seen by Provider: 02/27/25 18:28 History of Present Illness HPI narrative: Patient Abilio presents for the second time today at the behest of the patient's son. Patient complains of pain with his Heda and is leaking urine. Additionally patient has been altered for approximately 2 weeks and appears to be weaker according to his son. He went out and bought him a walker however he is fallen twice since he was first evaluated on the . He suffered no apparent injury. Is patient's granddaughter and great grandson reside with him however neither have power of tip cementer. According to the patient's son no one has power of tip cementer. Patient's also resides there but does have Alzheimer's. Patient is mentating at the same baseline that he was when I first examined him on Tuesday which is he appears to lack insight into his problem does not recall me placing the Head catheter personally on the but does recall being here today in our conversation today. He has no focal neurologic deficits but seems to lack insight into the fact that he has bladder cancer complains of having to pee all the time despite having a Head and even no I have explained to him that he will have that sensation he does not retain that. There is no other acute problems today since he was here just a few hours ago. Related Data Home Medications ?Medication ?Instructions ?Recorded ?Confirmed quinapril 20 mg tablet 20 mg PO DAILY Hypertension 11/29/20 04/12/22 tamsulosin 0.4 mg capsule 0.4 mg PO HS PROSTATE 11/29/20 04/12/22 verapamil 120 mg 24 hr 120 mg PO DAILY Hypertension 11/29/20 04/12/22 capsule,extended release simvastatin 10 mg tablet 10 mg PO DAILY Cholesterol 03/05/22 04/12/22 Previous Rx's ?Medication ?Instructions ?Recorded cefdinir 300 mg capsule 300 mg PO BID 7 days #14 caps 06/26/24 tamsulosin 0.4 mg capsule 0.4 mg PO DAILY #30 caps 06/26/24 sulfamethoxazole 800 1 tab PO BID 5 days #10 tabs 02/22/25 mg-trimethoprim 160 mg tablet (Bactrim DS) oxybutynin chloride 10 mg 10 mg PO DAILY #30 tabs 02/27/25 tablet,extended release 24 hr phenazopyridine 200 mg tablet 200 mg PO Q8H PRN pain #30 tabs 02/27/25 (Pyridium) Allergies Allergy/AdvReac Type Severity Reaction Status Date / Time No Known Allergies Allergy Verified 06/26/24 12:16 [facility] <ASHANTI Vickers - Last Filed: 02/27/25 20:41> [facility] Disclaimer: The information contained in this section may have been updated after the patient was seen, as this information can be updated by other users. Medical History High blood cholesterol High blood pressure Surgical History H/O hernia repair Family History Other Stroke Social History Smoking Status: Former smoker alcohol intake: never substance use type: denies use current occupational status: retired and other Travel in the last 8 weeks?: None household members: spouse and family housing: house Have you lived/traveled outside US in past 30 days?: No Contact w/someone who lives/traveled outside US past 30 days?: No Exposure to someone with infectious disease in past 14 days?: No Do you have a fever (greater than 100.4 F or 38 C)?: No Have you tested positive for COVID-19?: No Exposed to someone with COVID-19 in past 14 days?: No Do you have a sore throat?: No Do you have a cough?: No Do you have any weakness?: No Do you have any diarrhea?: No Are you experiencing any unusual bleeding?: No Do you have any muscle aches/pain?: No Do you have any abdominal pain?: No Are you experiencing loss of taste or smell?: No Other Medical History Have you received the Pneumonia Vaccine: Yes <ASHANTI Vickers - Last Filed: 02/27/25 20:41> ROS Obtained: Yes Systems reviewed as appropriate & no additional complaints except as documented Physical Exam <ASHANTI Vickers - Last Filed: 02/27/25 20:41> General General appearance: alert Respiratory Respiratory exam: Present normal lung sounds bilaterally Cardiovascular Cardiovascular exam: Present regular rate Neurological Exam Neurological exam: Present alert and oriented X3 Medical Decision Making <ASHANTI Vickers - Last Filed: 02/27/25 20:41> Medical Records Medical records reviewed: Yes I reviewed the patient's medical records. Screening: Per USPSTF and CDC recommendations, given the prevalence of disease in our region, it is our hospital?s policy to screen for HIV and viral Hepatitis for all patients aged 18 and over and those with ongoing risk factors. Billy Inquiry Pt receiving controlled substance: No Vital Signs: 02/27/25 18:30 02/27/25 18:30 02/27/25 19:01 Temperature 99.5 F 99.5 F Temperature Source Oral Oral Pulse Rate 70 Pulse Rate [Right] 70 Respiratory Rate 18 18 Blood Pressure 98/71 L 135/82 Blood Pressure [Right Arm] 98/71 L Blood Pressure Mean Blood Pressure Mean [Right Arm] 80 Blood Pressure Source [Right Arm] Automatic Cuff 02 Sat by Pulse Oximetry 97 97 95 Oxygen Delivery Method Room Air Room Air 02/27/25 19:30 02/27/25 20:01 Temperature Temperature Source Pulse Rate 74 69 Pulse Rate [Right] Respiratory Rate Blood Pressure 140/77 142/86 H Blood Pressure [Right Arm] Blood Pressure Mean 98 104 Blood Pressure Mean [Right Arm] Blood Pressure Source [Right Arm] 02 Sat by Pulse Oximetry 97 96 Oxygen Delivery Method Lab Data Lab results reviewed: Yes I reviewed the patient's lab results. Lab Results 02/27/25 18:00: WBC 4.5 L, RBC 4.08 L, Hgb 12.4 L, Hct 34.6 L, MCV 84.8, MCH 30.4, MCHC 35.8 H, RDW 11.9, Plt Count 200, MPV 9.7, Neut % (Auto) 78.4, Lymph % (Auto) 13.2, [place] % (Auto) 6.7, Eos % (Auto) 1.1, Baso % (Auto) 0.4, Neut # (Auto) 3.5, Lymph # (Auto) 0.6 L, [place] # (Auto) 0.3, Eos # (Auto) 0.1, Baso # (Auto) 0.0, PT 11.0, INR 0.99, Sodium 128 L, Potassium 4.0, Chloride 101, Carbon Dioxide 22, Anion Gap 9.0, BUN 13, Creatinine 1.20, Estimated Creat Clear 42, Estimated GFR 57 L, Est GFR ( Amer) 69, Glucose 99, Calcium 9.5, Total Bilirubin 0.5, AST 37, ALT 21, Alkaline Phosphatase 80, Total Protein 6.6, Albumin 3.8, Globulin 2.8, Albumin/Globulin Ratio 1.4, Procalcitonin 0.096 02/27/25 18:00 02/27/25 18:00 Orders (Tests/Meds): ED MEDICATIONS Discontinued Medications Generic Name Dose Route Start Last Admin Trade Name Freq PRN Reason Stop Dose Admin Acetaminophen 1,000 mg 02/27/25 18:28 02/27/25 18:48 Acetaminophen 500mg Tab PO 02/27/25 18:29 1,000 mg ONCE ONE Administration Sodium Chloride 1,000 mls @ 999 mls/hr 02/27/25 18:28 02/27/25 18:47 Sod Chlor 0.9% 1000ml Bag IV 02/27/25 19:28 999 mls/hr .Q1H1M ONE Administration Iopamidol 75 ml 02/27/25 20:11 02/27/25 20:13 Iopamidol-370 (76%);100ml Bottle IV 02/27/25 20:12 75 ml ONCE ONE Administration Ketorolac Tromethamine 15 mg 02/27/25 18:28 02/27/25 18:50 Ketorolac 30mg/Ml Vial IV 02/27/25 18:29 15 mg ONCE ONE Administration Lidocaine HCl 1 ml 02/27/25 19:36 02/27/25 19:57 Lidocaine 2% Urojet 10ml TP 02/27/25 19:37 1 ml ONCE ONE Administration Ondansetron HCl 4 mg 02/27/25 18:28 02/27/25 18:49 Ondansetron 4mg/2ml Vial IV 02/27/25 18:29 4 mg ONCE ONE Administration Oxycodone HCl 5 mg 02/27/25 19:08 02/27/25 19:23 Oxycodone 5mg Immediate Release Tablet PO 02/27/25 19:09 5 mg ONCE ONE Administration Sodium Chloride 10 ml 02/27/25 20:11 02/27/25 20:13 Sodium Chloride 0.9% 10ml Syr (Rad Only) IV 02/27/25 20:12 10 ml ONCE ONE Administration ORDERS Category Date Time Status CT abdomen pelvis w con Stat Cat Scan 02/27/25 19:[address] head/brain wo con Stat Cat Scan 02/27/25 18:31 Completed CBC w/Auto Diff [Complete Blood Count Auto Diff] Stat Lab 02/27/25 18:00 Completed CMP [Comprehensive Metabolic Panel] Stat Lab 02/27/25 18:00 Completed INR [Prothrombin Time INR] Stat Lab 02/27/25 18:00 Completed Procalcitonin Stat Lab 02/27/25 18:00 Completed UA [Urinalysis and Microscopic] Stat Lab 02/27/25 18:28 Ordered Urine Culture(cathed specimen) Stat Micro 02/27/25 18:38 Ordered Medical Decision Narrative: In summary patient is a 89-year-old gentleman who presents to the emergency department for evaluation of acute confusion and a Head problem. Patient is initially presenting with a blood pressure of 98/71 pulse 70 with sinus rhythm on the bedside monitor breathing 18 times a minute satting at 97% on room air upon arrival, with a temperature of 99.5. Physical exam reveals normal external genitalia. Head appears to be appropriately positioned and patient had clear urine in his bag earlier today however currently the bag is dry. Patient reports suprapubic tenderness on palpation but the remainder of his abdomen is soft nontender no rebound or guarding no rigidity. Patient moves all 4 extremities he has no focal neurologic deficits. Glascow coma score is 14 cranial nerves II through XII intact grossly to exam. Differential diagnosis includes toxic metabolic encephalopathy versus Head catheter malfunction versus worsening undiagnosed undifferentiated dementia etc. Initial workup will be conducted with hematologic labs urinalysis CT scan of the head without contrast CT scan abdomen pelvis. Initial interventions include attempted Head catheter change as Head catheter could not be irrigated. Initial workup reviewed by me as hematologic labs are nonactionable. We were able to successfully change the 10 German straight Head to a 14 coud? with a maximum diameter however no urine came out. Balloon could only be inflated to 7 cc hubbed. My informed interpretation of the CT scan of the pelvis shows that the bladder has been significantly reduced from 5 days ago however it also has complicated it as we are now unable to reach the bladder with a regular length catheter. His 14 German coud? is in the prostate/mass hubbed. Given this I had interactive discussion with Dr. Martel of urology at [facility] about patient presentation CHACKO and management and and he has accepted the patient pending hospitalist acceptance. We await acceptance by hospital medicine. I spoke with Gutsabo Portillo PA-C who is on-call this evening for the hospitalist service and about patient presentation CHACKO and management and he has been accepted for further evaluation and care. At 2039 <Ted Collier MD - Last Filed: 02/27/25 20:43> Vital Signs: 02/27/25 18:30 02/27/25 18:30 02/27/25 19:01 Temperature 99.5 F 99.5 F Temperature Source Oral Oral Pulse Rate 70 Pulse Rate [Right] 70 Respiratory Rate 18 18 Blood Pressure 98/71 L 135/82 Blood Pressure [Right Arm] 98/71 L Blood Pressure Mean Blood Pressure Mean [Right Arm] 80 Blood Pressure Source [Right Arm] Automatic Cuff 02 Sat by Pulse Oximetry 97 97 95 Oxygen Delivery Method Room Air Room Air 02/27/25 19:30 02/27/25 20:01 Temperature Temperature Source Pulse Rate 74 69 Pulse Rate [Right] Respiratory Rate Blood Pressure 140/77 142/86 H Blood Pressure [Right Arm] Blood Pressure Mean 98 104 Blood Pressure Mean [Right Arm] Blood Pressure Source [Right Arm] 02 Sat by Pulse Oximetry 97 96 Oxygen Delivery Method Lab Data Lab Results 02/27/25 18:00: WBC 4.5 L, RBC 4.08 L, Hgb 12.4 L, Hct 34.6 L, MCV 84.8, MCH 30.4, MCHC 35.8 H, RDW 11.9, Plt Count 200, MPV 9.7, Neut % (Auto) 78.4, Lymph % (Auto) 13.2, [place] % (Auto) 6.7, Eos % (Auto) 1.1, Baso % (Auto) 0.4, Neut # (Auto) 3.5, Lymph # (Auto) 0.6 L, [place] # (Auto) 0.3, Eos # (Auto) 0.1, Baso # (Auto) 0.0, PT 11.0, INR 0.99, Sodium 128 L, Potassium 4.0, Chloride 101, Carbon Dioxide 22, Anion Gap 9.0, BUN 13, Creatinine 1.20, Estimated Creat Clear 42, Estimated GFR 57 L, Est GFR ( Amer) 69, Glucose 99, Calcium 9.5, Total Bilirubin 0.5, AST 37, ALT 21, Alkaline Phosphatase 80, Total Protein 6.6, Albumin 3.8, Globulin 2.8, Albumin/Globulin Ratio 1.4, Procalcitonin 0.096 Orders (Tests/Meds): ED MEDICATIONS Discontinued Medications Generic Name Dose Route Start Last Admin Trade Name Freq PRN Reason Stop Dose Admin Acetaminophen 1,000 mg 02/27/25 18:28 02/27/25 18:48 Acetaminophen 500mg Tab PO 02/27/25 18:29 1,000 mg ONCE ONE Administration Sodium Chloride 1,000 mls @ 999 mls/hr 02/27/25 18:28 02/27/25 18:47 Sod Chlor 0.9% 1000ml Bag IV 02/27/25 19:28 999 mls/hr .Q1H1M ONE Administration Iopamidol 75 ml 02/27/25 20:11 02/27/25 20:13 Iopamidol-370 (76%);100ml Bottle IV 02/27/25 20:12 75 ml ONCE ONE Administration Ketorolac Tromethamine 15 mg 02/27/25 18:28 02/27/25 18:50 Ketorolac 30mg/Ml Vial IV 02/27/25 18:29 15 mg ONCE ONE Administration Lidocaine HCl 1 ml 02/27/25 19:36 02/27/25 19:57 Lidocaine 2% Urojet 10ml TP 02/27/25 19:37 1 ml ONCE ONE Administration Ondansetron HCl 4 mg 02/27/25 18:28 02/27/25 18:49 Ondansetron 4mg/2ml Vial IV 02/27/25 18:29 4 mg ONCE ONE Administration Oxycodone HCl 5 mg 02/27/25 19:08 02/27/25 19:23 Oxycodone 5mg Immediate Release Tablet PO 02/27/25 19:09 5 mg ONCE ONE Administration Sodium Chloride 10 ml 02/27/25 20:11 02/27/25 20:13 Sodium Chloride 0.9% 10ml Syr (Rad Only) IV 02/27/25 20:12 10 ml ONCE ONE Administration ORDERS Category Date Time Status CT abdomen pelvis w con Stat Cat Scan 02/27/25 19:[address] head/brain wo con Stat Cat Scan 02/27/25 18:31 Completed CBC w/Auto Diff [Complete Blood Count Auto Diff] Stat Lab 02/27/25 18:00 Completed CMP [Comprehensive Metabolic Panel] Stat Lab 02/27/25 18:00 Completed INR [Prothrombin Time INR] Stat Lab 02/27/25 18:00 Completed Procalcitonin Stat Lab 02/27/25 18:00 Completed UA [Urinalysis and Microscopic] Stat Lab 02/27/25 18:28 Ordered Urine Culture(cathed specimen) Stat Micro 02/27/25 18:38 Ordered Medical Decision Narrative: In summary patient is a 89-year-old gentleman who presents to the emergency department for evaluation of acute confusion and a Head problem. Patient is initially presenting with a blood pressure of 98/71 pulse 70 with sinus rhythm on the bedside monitor breathing 18 times a minute satting at 97% on room air upon arrival, with a temperature of 99.5. Physical exam reveals normal external genitalia. Head appears to be appropriately positioned and patient had clear urine in his bag earlier today however currently the bag is dry. Patient reports suprapubic tenderness on palpation but the remainder of his abdomen is soft nontender no rebound or guarding no rigidity. Patient moves all 4 extremities he has no focal neurologic deficits. Glascow coma score is 14 cranial nerves II through XII intact grossly to exam. Differential diagnosis includes toxic metabolic encephalopathy versus Head catheter malfunction versus worsening undiagnosed undifferentiated dementia etc. Initial workup will be conducted with hematologic labs urinalysis CT scan of the head without contrast CT scan abdomen pelvis. Initial interventions include attempted Head catheter change as Head catheter could not be irrigated. Initial workup reviewed by me as hematologic labs are nonactionable. We were able to successfully change the 10 German straight Head to a 14 coud? with a maximum diameter however no urine came out. Balloon could only be inflated to 7 cc hubbed. My informed interpretation of the CT scan of the pelvis shows that the bladder has been significantly reduced from 5 days ago however it also has complicated it as we are now unable to reach the bladder with a regular length catheter. His 14 German coud? is in the prostate/mass hubbed. Given this I had interactive discussion with Dr. Martel of urology at [facility] about patient presentation CHACKO and management and and he has accepted the patient pending hospitalist acceptance. We await acceptance by hospital medicine. I spoke with Gustabo Portillo PA-C who is on-call this evening for the hospitalist service and about patient presentation CHACKO and management and he has been accepted for further evaluation and care. I was consulted by the OTF, and we discussed the complexity of the problems being addressed. I approved the treatment and management plan for this patient's care in the emergency department, thus performing a substantive portion of the medical decision making. Ted Collier MD Critical Care <ASHANTI Vickers - Last Filed: 02/27/25 20:41> Critical Care Time Critical Care Time: Yes Attestation: On 02/27/25, the high probability of a clinically significant, sudden or life threatening deterioration of the following system(s) required my full and direct attention, intervention and personal management. The time I documented below is in addition to time spent performing reported procedures but includes the following listed in this critical care notation. Total Time Total Critical Care Time: 30
--- NOTE | 2025-02-27 18:31 | CT_ITS ---
PROCEDURE INFORMATION: Exam: CT Head Without Contrast Exam date and time: 02/27/2025 6:42 PM Age: 89 years old Clinical indication: Altered mental status/memory loss; Additional info: Acute confusion TECHNIQUE: Imaging protocol: Computed tomography of the head without contrast. Radiation optimization: All CT scans at this facility use at least one of these dose optimization techniques: automated exposure control; mA and/or kV adjustment per patient size (includes targeted exams where dose is matched to clinical indication); or iterative reconstruction. COMPARISON: CT HEAD/BRAIN WO CON 06/10/2023 5:12 PM FINDINGS: Brain: Atrophy and chronic small vessel ischemic changes. No hemorrhage. No mass effect or midline shift. Cerebral ventricles: No ventriculomegaly. Paranasal sinuses: Visualized sinuses are unremarkable. No fluid levels. Mastoid air cells: Visualized mastoid air cells are well aerated. Bones: Unremarkable. No acute fracture. Soft tissues: Unremarkable. IMPRESSION: Chronic changes in the brain but no acute intracranial abnormality.
[2025-02-27 18:35] LABS: Hematocrit 34.6 % (42.0-52.0); Hemoglobin 12.4 g/dL (14.1-18.0); Immature Granulocytes % 0.2 %; Mean Corpuscular HGB Conc 35.8 g/dL (31.8-35.4); Mean Corpuscular Hemoglobin 30.4 pg (27.0-31.2); Mean Corpuscular Volume 84.8 fl (80-94); Nucleated Red Blood Cells % 0 %; Platelet Count 200 K/mm3 (142-424); Red Blood Count 4.08 M/mm3 (4.60-6.20); Red Cell Distribution Width-SD 36.6 fL; White Blood Count 4.5 K/mm3 (4.8-10.8)
[2025-02-27] MEDS: 0.9 % SODIUM CHLORIDE 1000ML 1,000 ML 999 ML IV (18:47)
[2025-02-27 18:48] LABS: INR 0.99 (0.9-1.1); Prothrombin Time 11.0 seconds (10.1-12.5)
[2025-02-27] MEDS: ACETAMINOPHEN 500MG TAB 1000 MG PO (18:48)
[2025-02-27] MEDS: ONDANSETRON 4MG/2ML VIAL 4 MG IV (18:49)
[2025-02-27] MEDS: KETOROLAC 30MG/ML VIAL 15 MG IV (18:50)
[2025-02-27 18:54] LABS: Potassium 4.0 mmoL/L (3.5-5.1); Sodium 128 mmol/L (136-145)
--- NOTE | 2025-02-27 18:54 | PC.NURSE ---
attempted to collect urine specimen from existing indwelling catheter at this time. no urine available. Per ASHANTI Aguilar okay to collect urine from this catheter d/t difficulty with insertion.
[2025-02-27 18:56] LABS: Alanine Aminotransferase 21 U/L (12-78); Aspartate Amino Transferase 37 U/L (17-59); Blood Urea Nitrogen 13 mg/dl (9-20); Carbon Dioxide 22 mmol/L (22.0-30.0); Creatinine Clearance Estimated 42 mL/min (50-200); Creatinine,Serum 1.20 mg/dl (0.66-1.25); Estimated Glomerular Filt Rate 57 ml/min (>60); GFR (African American) 69 ML/MIN (>60)
[2025-02-27 18:57] LABS: Alkaline Phosphatase 80 U/L (38-126); Bilirubin,Total 0.5 mg/dl (0.2-1.3); Calcium 9.5 mg/dl (8.4-10.2); Glucose 99 mg/dl (74-100); Total Protein,Serum 6.6 g/dl (6.3-8.2)
[2025-02-27 19:16] LABS: Albumin Level 3.8 g/dl (3.5-5.0); Albumin/Globulin Ratio 1.4 (1.1-1.8); Anion Gap 9.0 mEq/L (5-15); Chloride 101 mmol/L (98-107); Globulin 2.8 g/dL (1.3-3.2)
--- NOTE | 2025-02-27 19:20 | PC.NURSE ---
Report received from Suha SAUL Pt uncomfortable Attempted to flush decker catheter with no success. Discussed with MD will bladder scan and attempt to replace catheter. Skin pink warm and dry Resp full and easy Speech clear and appropriate. IV sith without redness or edema
[2025-02-27] MEDS: OXYCODONE 5MG IMMEDIATE RELEASE TABLET 5 MG PO (19:23)
--- NOTE | 2025-02-27 19:25 | CT_ITS ---
PROCEDURE INFORMATION: Exam: CT Abdomen And Pelvis With Contrast Exam date and time: 02/27/2025 8:12 PM Age: 89 years old Clinical indication: Condition or disease; Other: Head malfunction TECHNIQUE: Imaging protocol: Computed tomography of the abdomen and pelvis with contrast. Radiation optimization: All CT scans at this facility use at least one of these dose optimization techniques: automated exposure control; mA and/or kV adjustment per patient size (includes targeted exams where dose is matched to clinical indication); or iterative reconstruction. Contrast material: ISOVUE; Contrast volume: 75 ml; Contrast route: IV; COMPARISON: CT ANGIO ABDOMEN PELVIS 02/22/2025 7:20 PM FINDINGS: Lungs: Mild areas of atelectasis in the lung bases. Liver: Simple cyst in the right lobe of the liver 2.7 cm. Fatty liver. Gallbladder and biliary ducts: Normal. No calcified stones. No ductal dilation. Pancreas: Normal. No ductal dilation. Spleen: Normal. No splenomegaly. Adrenal glands: Normal. No mass. Kidneys and ureters: Normal. No hydronephrosis. Stomach and bowel: Diverticulosis without diverticulitis. No colitis or small bowel obstruction. Appendix: No evidence of appendicitis. Intraperitoneal space: Unremarkable. No free air. No significant fluid collection. Vasculature: Unremarkable. No abdominal aortic aneurysm. Lymph nodes: Unremarkable. No enlarged lymph nodes. Urinary bladder: Urinary bladder wall thickening which could be related to cystitis. Reproductive: Unremarkable as visualized. Bones/joints: Unremarkable. No acute fracture. Soft tissues: Unremarkable. IMPRESSION: Severe cystitis otherwise no additional acute intra-abdominal or intrapelvic abnormality
[2025-02-27 19:37] LABS: Procalcitonin 0.096 ng/mL (0.0-2.0)
[2025-02-27] MEDS: LIDOCAINE 2% UROJET 10ML TP (19:57)
--- NOTE | 2025-02-27 19:59 | PC.NURSE ---
14 fr coude catheter placed using lidocaine. Pt tolerated procedure well Pt has bladder scan for 200 ml No return after catheter. Bloon would only accept 7ml in the balloon.
[2025-02-27] MEDS: IOPAMIDOL-370 (76%);100ML BOTTLE 75 ML IV (20:13)
[2025-02-27] MEDS: SODIUM CHLORIDE 0.9% 10ML SYR (RAD ONLY) 10 ML IV (20:13)
--- NOTE | 2025-02-27 20:20 | PC.NURSE ---
Pt back from CT scan
--- NOTE | 2025-02-27 20:37 | PC.NURSE ---
propr Auth foaxed to [facility]
--- NOTE | 2025-02-27 21:06 | PC.NURSE ---
Pt aware of plans for admission [facility] Awaiting bed assignment
== END 2025-02-27 21:41 | disposition short-term general hospital (02) ==
PROVIDERS: Physician Assistant; Emergency Provider Emergency Medicine; PCP Family Medicine
DX: N32.0 Bladder-neck obstruction (principal); R41.0 Disorientation, unspecified
CPT/HCPCS: 70450; 74177; 80053; 84145; 85025; 85610; 96361; 96374; 96375; 99291; J1885; J2405; J7030; Q9967